=== PATIENT | female | born 2000 ===

== ENCOUNTER 2022-01-28 01:38 | Emergency (ER) | payer OTHER ==
[2022-01-28 01:54] VITALS: BP 114/59; PULSE 80; RESP 16; TEMP 97.9
--- NOTE | 2022-01-28 02:49 | ED ---
General Adult HPI - General Chief complaint: Recheck/Abnormal Lab/Rx Stated complaint: Encounter with a bat Time Seen by Provider: 01/28/22 02:09 Source: patient, RN notes reviewed Mode of arrival: ambulatory Limitations: no limitations - History of Present Illness Initial comments: This is a 21-year-old female who presents to the emergency department for an encounter with bats. States that over the last couple of weeks, she has had encounters with around 3 bats, two of which were in her house and one in her neighbors. She does not believe that she was bitten or scratched at all. States that she did have to clean up quite a lot of bad droppings that were around the house. She inquired about any possible diseases she may have contracted and what to do about this exposure. Denies any fevers, chills, sore throat, cough, dyspnea, chest pain, palpitations, abdominal pain, nausea, vomiting, diarrhea, back pain, or headaches. - Related Data Allergies Allergy/AdvReac Type Severity Reaction Status Date / Time No Known Allergies Allergy Verified 01/28/22 01:51 Review of Systems ROS Statement: Those systems with pertinent positive or pertinent negative responses have been documented in the HPI. ROS Other: All systems not noted in ROS Statement are negative. Past Medical History Past Medical History: No Reported History Past Surgical History: No Surgical Hx Reported Past Psychological History: Anxiety, Depression, PTSD Smoking Status: Never smoker Past Alcohol Use History: None Reported Past Drug Use History: None Reported General Exam Limitations: no limitations General appearance: alert, in no apparent distress Head exam: Present: atraumatic, normocephalic, normal inspection Respiratory exam: Present: normal lung sounds bilaterally. Absent: respiratory distress, wheezes, rales, rhonchi, stridor Cardiovascular Exam: Present: regular rate, normal rhythm, normal heart sounds. Absent: systolic murmur, diastolic murmur, rubs, gallop, clicks Neurological exam: Present: alert, oriented X3, CN II-XII intact Psychiatric exam: Present: normal affect, normal mood Skin exam: Present: warm, dry, intact, normal color. Absent: rash Course Vital Signs 01/28/22 01:52 Temperature 97.9 F Pulse Rate 80 Respiratory 16 Rate Blood Pressure 114/59 O2 Sat by Pulse 98 Oximetry Medical Decision Making - Medical Decision Making This is a 21-year-old female who presents to the emergency department for a bat encounter. Discussed that at this time the rabies vaccination series is something we can offer to mitigate her risk following this exposure. Patient wishes to proceed with rabies vaccination. Patient given the first dose in the emergency department. Advised that she'll need to return on days 3 (01/31), 7 (02/04), and 14 (02/11) for the subsequent doses of the rabies vaccine. Additionally, we discussed that if she begins to develop flulike symptoms, extreme fatigue, or headaches that do not resolve on their own, she should consider returning to the emergency department to discuss testing for histoplasmosis. Return precautions reviewed in depth, the patient is instructed to return to the emergency department with any new, worsening, or concerning symptoms. Patient verbalized understanding. This case was discussed in detail with the attending ED physician. Presentation, findings, and treatment plan discussed in detail as well. Disposition Clinical Impression: Deficient knowledge of rabies contact Disposition: HOME SELF-CARE Instructions (If sedation given, give patient instructions): Rabies Vaccine (By injection), Histoplasmosis (ED), Rabies (ED) Additional Instructions: Return to the emergency department with any new, worsening, or concerning symptoms. You will need repeat rabies vaccines on days 3 (01/31), 7 (02/04), and 14 (02/11). These will be scheduled through [facility]. If you do not hear from the [facility] clinic in 1-2 days, call them to set up the appointments. If your follow up vaccines are on a Tuesday or Tuesday, you will need to return to the emergency department for the vaccine. If you develop any flu-like symptoms, headaches, or extreme fatigue that do not improve on their own or continue to worsen, consider being tested for histoplasmosis. Is patient prescribed a controlled substance at d/c from ED?: No Referrals: None,Stated [Primary Care Provider] - 1-2 days
[2022-01-28] MEDS ORDERED: RABIES VACCINE (PCEC) 2.5 UNIT KIT IM ONE (03:01)
== END 2022-01-28 03:45 | disposition home or self-care (01) ==
LOC: EC 01:38
DX: Z29.14 Encounter for prophylactic rabies immune globulin (principal)
CPT/HCPCS: 90471; 90675; 99281

== ENCOUNTER 2022-02-23 11:29 | Emergency (ER) | payer OTHER ==
--- NOTE | 2022-02-23 13:23 | ED ---
SOB HPI - General Chief Complaint: Shortness of Breath Stated Complaint: chest pain Time Seen by Provider: 02/23/22 13:18 Source: patient Mode of arrival: ambulatory Limitations: no limitations - History of Present Illness Initial Comments: This patient is 21-year-old woman who comes here with concern that she is developing worsening anemia. The patient states she had gone to see her psychiatric counselor today and had been describing some episodes in which she was short of breath. This is been occurring for weeks to months. She states sometimes with exertion or stress she feels short of breath. She is not currently short of breath. She mentioned to the therapist that her hemoglobin previously was 9.0, and the therapist felt that she should have this rechecked. The patient is not having any bloody or tarry stools. She states that she does have small amount of spotting pretty much every day in relation to her control, she does have the Implanon. There is no chest pain. No dyspnea at rest, no palpitations, lightheadedness or syncope. MD Complaint: shortness of breath -: week(s) Consistency: intermittent Improves With: nothing Worsens With: exertion, other Treatments Prior to Arrival: none - Related Data Previous Rx's Medication Instructions Recorded Ferrous Sulfate [Iron (65 MG 325 mg PO BID #60 tab 02/23/22 Elemental)] Allergies Allergy/AdvReac Type Severity Reaction Status Date / Time No Known Allergies Allergy Verified 02/23/22 12:14 Review of Systems ROS Statement: Those systems with pertinent positive or pertinent negative responses have been documented in the HPI. ROS Other: All systems not noted in ROS Statement are negative. Constitutional: Denies: fever, chills Respiratory: Denies: cough, dyspnea Cardiovascular: Reports: dyspnea on exertion. Denies: chest pain, palpitations, orthopnea, edema, syncope Gastrointestinal: Denies: abdominal pain, vomiting, diarrhea Genitourinary: Reports: abnormal menses. Denies: dysuria, frequency, hematuria, discharge Musculoskeletal: Denies: back pain Skin: Denies: rash Neurological: Denies: headache, weakness Past Medical History Past Medical History: No Reported History, Seizure Disorder Additional Past Medical History / Comment(s): ANEMIA History of Any Multi-Drug Resistant Organisms: None Reported Past Surgical History: No Surgical Hx Reported Past Psychological History: Anxiety, Depression, PTSD Smoking Status: Never smoker Past Alcohol Use History: None Reported Past Drug Use History: None Reported General Exam Limitations: no limitations General appearance: alert, in no apparent distress Head exam: Present: atraumatic, normocephalic Eye exam: Present: normal appearance. Absent: scleral icterus, conjunctival injection Pupils: Present: other (No conjunctival pallor) ENT exam: Present: normal oropharynx, other (No mucosal pallor) Neck exam: Present: normal inspection Respiratory exam: Present: normal lung sounds bilaterally. Absent: respiratory distress, wheezes, rales, rhonchi, stridor Cardiovascular Exam: Present: regular rate, normal rhythm, normal heart sounds. Absent: systolic murmur, diastolic murmur, rubs, gallop GI/Abdominal exam: Present: soft. Absent: distended, tenderness, guarding, rebound, rigid, mass Extremities exam: Present: normal inspection, normal capillary refill. Absent: pedal edema, calf tenderness Back exam: Present: normal inspection Neurological exam: Present: alert Skin exam: Present: warm, dry, intact, normal color. Absent: rash, pallor Course Vital Signs 02/23/22 12:12 Pulse Rate 77 Respiratory 20 Rate Blood Pressure 117/77 O2 Sat by Pulse 100 Oximetry Medical Decision Making - Lab Data Result diagrams: 02/23/22 13:05 02/23/22 13:05 Lab Results 02/23/22 02/23/22 Range/Units 13:05 13:05 WBC 5.9 (3.8-10.6) k/uL RBC 4.53 (3.80-5.40) m/uL Hgb 9.1 L (11.4-16.0) gm/dL Hct 30.9 L (34.0-46.0) % MCV 68.1 L D (80.0-100.0) fL MCH 20.1 L (25.0-35.0) pg MCHC 29.6 L (31.0-37.0) g/dL RDW 16.9 H (11.5-15.5) % Plt Count 477 H (150-450) k/uL MPV 8.0 Neutrophils % 56 % Lymphocytes % 34 % Monocytes % 4 % Eosinophils % 3 % Basophils % 1 % Neutrophils # 3.3 (1.3-7.7) k/uL Lymphocytes # 2.0 (1.0-4.8) k/uL Monocytes # 0.2 (0-1.0) k/uL Eosinophils # 0.2 (0-0.7) k/uL Basophils # 0.1 (0-0.2) k/uL Hypochromasia Marked Anisocytosis Slight Microcytosis Marked Sodium 139 (137-145) mmol/L Potassium 3.9 (3.5-5.1) mmol/L Chloride 102 (98-107) mmol/L Carbon Dioxide 24 (22-30) mmol/L Anion Gap 13 mmol/L BUN 11 (7-17) mg/dL Creatinine 0.60 (0.52-1.04) mg/dL Est GFR (CKD-EPI)AfAm >90 (>60 ml/min/1.73 sqM) Est GFR (CKD-EPI)NonAf >90 (>60 ml/min/1.73 sqM) Glucose 81 (74-99) mg/dL Calcium 9.2 (8.4-10.2) mg/dL Total Bilirubin 0.6 (0.2-1.3) mg/dL AST 28 (14-36) U/L ALT 15 (4-34) U/L Alkaline Phosphatase 74 (38-126) U/L Total Protein 7.2 (6.3-8.2) g/dL Albumin 4.7 (3.5-5.0) g/dL - EKG Data -: EKG Interpreted by Ar EKG shows normal: sinus rhythm, axis (Normal), intervals (Normal), QRS complexes (Normal), ST-T waves (Normal) Rate: normal (Rate 77 bpm) Interpretation: normal EKG Disposition Clinical Impression: Anemia Disposition: HOME SELF-CARE Condition: Good Instructions (If sedation given, give patient instructions): Anemia (ED) Prescriptions: Ferrous Sulfate [Iron (65 MG Elemental)] 325 mg PO BID #60 tab Is patient prescribed a controlled substance at d/c from ED?: No Referrals: None,Stated [Primary Care Provider] - 1-2 days Moncho Ferrer MD [STAFF PHYSICIAN] - 1-2 days Time of Disposition: 13:45
[2022-02-23 13:26] LABS: Anisocytosis Slight; Basophils # (A) 0.1 k/uL (0-0.2); Basophils % (A) 1 %; Eosinophils # (A) 0.2 k/uL (0-0.7); Eosinophils % (A) 3 %; HCT 30.9 % (34.0-46.0); HGB 9.1 gm/dL (11.4-16.0); Hypochromasia Marked; Lymphocytes % (A) 34 %; MCH 20.1 pg (25.0-35.0); MCHC 29.6 g/dL (31.0-37.0); Microcytosis Marked; Monocytes # (A) 0.2 k/uL (0-1.0); Monocytes % (A) 4 %; Neutrophils # (A) 3.3 k/uL (1.3-7.7); Neutrophils % (A) 56 %; Platelet Count 477 k/uL (150-450); RBC 4.53 m/uL (3.80-5.40); RDW 16.9 % (11.5-15.5); WBC 5.9 k/uL (3.8-10.6)
--- NOTE | 2022-02-23 13:26 | XR ---
EXAMINATION TYPE: XR chest 2V DATE OF EXAM: 02/23/2022 COMPARISON: None HISTORY: 21-year-old female chest pain, anemia TECHNIQUE: PA and lateral views FINDINGS: Heart normal size. Aorta and pulmonary vasculature within normal limits. Focal hazy lower lung densit ies likely relating to overlying soft tissue. No jess consolidation or pleural effusion seen. IMPRESSION: No definite acute process.
[2022-02-23 13:31] LABS: ALT 15 U/L (4-34); AST 28 U/L (14-36); African American GFR (CKD) >90 (>60 ml/min/1.73 sqM); Albumin 4.7 g/dL (3.5-5.0); Alkaline Phosphatase 74 U/L (38-126); Anion Gap 13 mmol/L; Blood Urea Nitrogen 11 mg/dL (7-17); Calcium 9.2 mg/dL (8.4-10.2); Carbon Dioxide 24 mmol/L (22-30); Chloride 102 mmol/L (98-107); Glucose 81 mg/dL (74-99); Non-African American GFR(CKD) >90 (>60 ml/min/1.73 sqM); Potassium 3.9 mmol/L (3.5-5.1); Sodium 139 mmol/L (137-145); Total Bilirubin 0.6 mg/dL (0.2-1.3); Total Protein 7.2 g/dL (6.3-8.2)
[2022-02-23 13:40] LABS: MCV 68.1 fL (80.0-100.0)
[2022-02-23 15:10] VITALS: BP 118/78; PULSE 88; RESP 18; TEMP 98.3
== END 2022-02-23 14:20 | disposition home or self-care (01) ==
LOC: EC 11:29
DX: D64.9 Anemia, unspecified (principal)
CPT/HCPCS: 36415; 71046; 80053; 85025; 93005; 99285

== ENCOUNTER 2022-09-02 21:32 | Emergency (ER) | payer BC, OTHER ==
[2022-09-02 21:39] VITALS: BP 139/96; PULSE 104; RESP 18; TEMP 98
[2022-09-02] MEDS ORDERED: SODIUM CHLORIDE 0.9% 1,000 ML IV STA (22:01)
[2022-09-02] MEDS ORDERED: ONDANSETRON 4 MG/2 ML VIAL IVP STA (22:01)
--- NOTE | 2022-09-02 22:05 | ED ---
General Adult HPI - General Chief complaint: Nausea/Vomiting/Diarrhea Stated complaint: vomiting Time Seen by Provider: 09/02/22 21:41 Source: patient Mode of arrival: ambulatory Limitations: no limitations - History of Present Illness Initial comments: Dictation was produced using [employer] dictation software. please excuse any grammatical, word or spelling errors. Chief Complaint: 22-year-old female presents with nausea vomiting and periumbilical abdominal pain History of Present Illness: Patient's 22-year-old female she presents to the emergency Department with 1 day of nausea, bilious vomiting and periumbilical pain. She denies any fever or chills. States that her pain is intermittent. She's had multiple bouts of what she describes as vomiting bile acid. Denies any diarrhea. Denies any history of abdominal surgery. No diarrhea. No vaginal discharge or vaginal bleeding. Last measured. Was last week. The ROS documented in this emergency department record has been reviewed and confirmed by me. Those systems with pertinent positive or negative responses have been documented in the HPI. All other systems are other negative and/or noncontributory. PHYSICAL EXAM: General Impression: Alert and oriented x3, not in acute distress HEENT: Normocephalic atraumatic, extra-ocular movements intact, pupils equal and reactive to light bilaterally, mucous membranes moist. Cardiovascular: Heart regular rate and rhythm Chest: Able to complete full sentences, no retractions, no tachypnea Abdomen: abdomen soft, minimal tenderness to the left periumbilical area, no pain at McBurney's point, no rebound tenderness, non-distended, no organomegaly Musculoskeletal: Pulses present and equal in all extremities, no peripheral edema Motor: no focal deficits noted Neurological: CN II-XII grossly intact, no focal motor or sensory deficits noted Skin: Intact with no visualized rashes Psych: Normal affect and mood ED course: 22-year-old female presents to the emergency Department with chief complaint of abdominal pain. Vital signs upon arrival are within acceptable limits. Patient does not have any high-risk features she is well-appearing has a soft abdomen. Her abdominal examination is benign. No concern for acute appendicitis, diverticulitis or any cause of surgical abdomen. Nursing notes and chart review was performed Was pt. sent in by a medical professional or institution (, PA, [employer]IC, urgent care, hospital, or [place] health care facility...) When possible be specific @ -No Did you speak to anyone other than the patient for history (EMS, parent, family, police, friend...)? What history was obtained from this source @ -No Did you review nursing and triage notes (agree or disagree)? Why? @ -I reviewed and agree with nursing and triage notes Were old charts reviewed (outside hosp., previous admission, EMS record, old EKG, old radiological studies, urgent care reports/EKG's, [place] health care facility records)? Report findings @ -No old charts were reviewed Differential Diagnosis (chest pain, altered mental status, abdominal pain women, abdominal pain men, vaginal bleeding, musculoskeletal, weakness, fever, dyspnea, syncope, headache, dizziness, GI bleed, back pain, seizure, CVA, palpatations, mental health)? @ -Differential Abdominal Pain Women: Appendicitis, Cholecystitis, diverticulosis, ischemic bowel, pancreatitis, hepatitis, UTI, gastroenteritis, AAA, incarcerated hernia, bowel obstruction, constipation, inflammatory bowel, hepatitis, peptic ulcer disease, splenic infarction, perforated viscus, vulvitis, ovarian torsion, PID, kidney stone, placenta abruption, this is not meant to be an all-inclusive list EKG interpreted by me (3pts min.). @ -None done X-rays interpreted by me (1pt min.). @ -None done CT interpreted by me (1pt min.). @ -None done U/S interpreted by me (1pt. min.). @ -None done What testing was considered but not performed or refused? (CT, X-rays, U/S, labs)? Why? @ -None What meds were considered but not given or refused? Why? @ -None Did you discuss the management of the patient with other professionals (professionals i.e. , PA, [employer], lab, RT, psych nurse, director social service, zoo keeper, teacher, chief medical officer, nurse case management)? Give summary @ -No Was smoking cessation discussed for >3mins.? @ -No Was critical care preformed (if so, how long)? @ -No Were there social determinants of health that impacted care today? How? (H omelessness, low income, unemployed, alcoholism, drug addiction, transportation, low edu. Level, literacy, decrease access to med. care, group home, rehab)? @ -No Was there de-escalation of care discussed even if they declined (Discuss DNR or withdrawal of care, Hospice)? DNR status @ -No What co-morbidities impacted this encounter? (DM, HTN, Smoking, COPD, CAD, Cancer, CVA, ARF, Chemo, Hep., AIDS, mental health diagnosis, sleep apnea, morbid obesity)? @ -None Was patient admitted / discharged? Hospital course, mention meds given and route, prescriptions, significant lab abnormalities, going to OR and other pertinent info. @ -Old female presents to the emergency room for nausea and mild abdominal pain. Abdomen is soft. Nonsurgical. She does have minimal reproducible abdominal tenderness in the. Umbilical area. Abdomen otherwise benign. No suspicion for surgical abdomen. Laboratory evaluation unremarkable. No leukocytosis. Abdominal labs are negative. Urinalysis is negative. Exacerbation given fluids through the emergency department. Patient discharged with return precautions. She is given prescription for antibiotics. Undiagnosed new problem with uncertain prognosis? @ -No Drug Therapy requiring intensive monitoring for toxicity (Heparin, Nitro, Insulin, Cardizem)? @ -No Were any procedures done? @ -No Diagnosis/symptom? Acute, or Chronic, or Acute on Chronic? Uncomplicated (without systemic symptoms) or Complicated (systemic symptoms)? @ -1. Acute uncomplicated nausea and abdominal pain, likely enteritis Side effects of treatment? @ -No Exacerbation, Progression, or Severe Exacerbation? @ -No Poses a threat to life or bodily function? How? (Chest pain, USA, IA, pneumonia, PE, COPD, DKA, ARF, appy, cholecystitis, CVA, Diverticulitis, Homicidal, Suicidal, threat to staff... and all critical care pts) @ -No - Related Data Home Medications Medication Instructions Recorded Confirmed Ferrous Sulfate [Feosol] 325 mg PO DAILY 09/02/22 09/02/22 Lurasidone [Latuda] 40 mg PO HS 09/02/22 09/02/22 buPROPion XL [Wellbutrin XL] 300 mg PO DAILY 09/02/22 09/02/22 busPIRone HCL 15 mg PO BID 09/02/22 09/02/22 norgestimate-ethinyl estradioL 1 tab PO DAILY 09/02/22 09/02/22 [Nina 0.25-0.035 mg Tablet] Previous Rx's Medication Instructions Recorded Ondansetron Odt [Zofran Odt] 4 mg PO Q8HR PRN #12 tab 09/02/22 Allergies Allergy/AdvReac Type Severity Reaction Status Date / Time No Known Allergies Allergy Verified 09/02/22 22:40 Review of Systems ROS Statement: Those systems with pertinent positive or pertinent negative responses have been documented in the HPI. ROS Other: All systems not noted in ROS Statement are negative. Past Medical History Past Medical History: No Reported History, Seizure Disorder Additional Past Medical History / Comment(s): ANEMIA History of Any Multi-Drug Resistant Organisms: None Reported Past Surgical History: No Surgical Hx Reported Past Psychological History: Anxiety, Depression, PTSD Smoking Status: Never smoker Past Alcohol Use History: None Reported Past Drug Use History: None Reported General Exam Limitations: no limitations Course Vital Signs 09/02/22 21:35 Temperature 98 F Pulse Rate 104 H Respiratory 18 Rate Blood Pressure 139/96 O2 Sat by Pulse 98 Oximetry Medical Decision Making - Lab Data Result diagrams: 09/02/22 22:12 09/02/22 22:12 Lab Results 09/02/22 09/02/22 09/02/22 Range/Units 22:12 22:12 22:51 WBC 9.5 (3.8-10.6) k/uL RBC 4.86 (3.80-5.40) m/uL Hgb 15.6 (11.4-16.0) gm/dL Hct 43.3 (34.0-46.0) % MCV 89.1 (80.0-100.0) fL MCH 32.1 (25.0-35.0) pg MCHC 36.1 (31.0-37.0) g/dL RDW 12.4 (11.5-15.5) % Plt Count 349 (150-450) k/uL MPV 6.7 Neutrophils % 70 % Lymphocytes % 23 % Monocytes % 5 % Eosinophils % 1 % Basophils % 1 % Neutrophils # 6.6 (1.3-7.7) k/uL Lymphocytes # 2.2 (1.0-4.8) k/uL Monocytes # 0.5 (0-1.0) k/uL Eosinophils # 0.1 (0-0.7) k/uL Basophils # 0.1 (0-0.2) k/uL Sodium 136 L (137-145) mmol/L Potassium 4.1 (3.5-5.1) mmol/L Chloride 102 (98-107) mmol/L Carbon Dioxide 25 (22-30) mmol/L Anion Gap 9 mmol/L BUN 8 (7-17) mg/dL Creatinine 0.63 (0.52-1.04) mg/dL Est GFR (CKD-EPI)AfAm >90 (>60 ml/min/1.73 sqM) Est GFR (CKD-EPI)NonAf >90 (>60 ml/min/1.73 sqM) Glucose 94 (74-99) mg/dL Calcium 9.2 (8.4-10.2) mg/dL Total Bilirubin 1.2 (0.2-1.3) mg/dL AST 35 (14-36) U/L ALT 37 H (4-34) U/L Alkaline Phosphatase 63 (38-126) U/L Total Protein 7.6 (6.3-8.2) g/dL Albumin 4.7 (3.5-5.0) g/dL Lipase 79 (23-300) U/L Urine Color Yellow Urine Appearance Clear (Clear) Urine pH 8.0 (5.0-8.0) Ur Specific Anthony 1.013 (1.001-1.035) Urine Protein Negative (Negative) Urine Glucose (UA) Negative (Negative) Urine Ketones 1+ H (Negative) Urine Blood Negative (Negative) Urine Nitrite Negative (Negative) Urine Bilirubin Negative (Negative) Urine Urobilinogen <2.0 (<2.0) mg/dL Ur Leukocyte Esterase Negative (Negative) Urine HCG, Qual (Not Detectd) 09/02/22 Range/Units 22:53 WBC (3.8-10.6) k/uL RBC (3.80-5.40) m/uL Hgb (11.4-16.0) gm/dL Hct (34.0-46.0) % MCV (80.0-100.0) fL MCH (25.0-35.0) pg MCHC (31.0-37.0) g/dL RDW (11.5-15.5) % Plt Count (150-450) k/uL MPV Neutrophils % % Lymphocytes % % Monocytes % % Eosinophils % % Basophils % % Neutrophils # (1.3-7.7) k/uL Lymphocytes # (1.0-4.8) k/uL Monocytes # (0-1.0) k/uL Eosinophils # (0-0.7) k/uL Basophils # (0-0.2) k/uL Sodium (137-145) mmol/L Potassium (3.5-5.1) mmol/L Chloride (98-107) mmol/L Carbon Dioxide (22-30) mmol/L Anion Gap mmol/L BUN (7-17) mg/dL Creatinine (0.52-1.04) mg/dL Est GFR (CKD-EPI)AfAm (>60 ml/min/1.73 sqM) Est GFR (CKD-EPI)NonAf (>60 ml/min/1.73 sqM) Glucose (74-99) mg/dL Calcium (8.4-10.2) mg/dL Total Bilirubin (0.2-1.3) mg/dL AST (14-36) U/L ALT (4-34) U/L Alkaline Phosphatase (38-126) U/L Total Protein (6.3-8.2) g/dL Albumin (3.5-5.0) g/dL Lipase (23-300) U/L Urine Color Urine Appearance (Clear) Urine pH (5.0-8.0) Ur Specific Anthony (1.001-1.035) Urine Protein (Negative) Urine Glucose (UA) (Negative) Urine Ketones (Negative) Urine Blood (Negative) Urine Nitrite (Negative) Urine Bilirubin (Negative) Urine Urobilinogen (<2.0) mg/dL Ur Leukocyte Esterase (Negative) Urine HCG, Qual Not Detected (Not Detectd) Disposition Clinical Impression: Nausea Disposition: HOME SELF-CARE Condition: Good Instructions (If sedation given, give patient instructions): Acute Nausea and Vomiting (ED) Prescriptions: Ondansetron Odt [Zofran Odt] 4 mg PO Q8HR PRN #12 tab PRN Reason: Nausea Is patient prescribed a controlled substance at d/c from ED?: No Referrals: José Antonio Allan DO [Primary Care Provider] - 1-2 days Time of Disposition: 23:47
[2022-09-02 22:27] LABS: Basophils # (A) 0.1 k/uL (0-0.2); Basophils % (A) 1 %; Eosinophils # (A) 0.1 k/uL (0-0.7); Eosinophils % (A) 1 %; HCT 43.3 % (34.0-46.0); HGB 15.6 gm/dL (11.4-16.0); Lymphocytes # (A) 2.2 k/uL (1.0-4.8); Lymphocytes % (A) 23 %; MCH 32.1 pg (25.0-35.0); MCHC 36.1 g/dL (31.0-37.0); MCV 89.1 fL (80.0-100.0); Mean Platelet Volume 6.7; Monocytes # (A) 0.5 k/uL (0-1.0); Monocytes % (A) 5 %; Neutrophils # (A) 6.6 k/uL (1.3-7.7); Neutrophils % (A) 70 %; Platelet Count 349 k/uL (150-450); RBC 4.86 m/uL (3.80-5.40); RDW 12.4 % (11.5-15.5); WBC 9.5 k/uL (3.8-10.6)
[2022-09-02 22:31] LABS: ALT 37 U/L (4-34); AST 35 U/L (14-36); African American GFR (CKD) >90 (>60 ml/min/1.73 sqM); Albumin 4.7 g/dL (3.5-5.0); Alkaline Phosphatase 63 U/L (38-126); Anion Gap 9 mmol/L; Blood Urea Nitrogen 8 mg/dL (7-17); Calcium 9.2 mg/dL (8.4-10.2); Carbon Dioxide 25 mmol/L (22-30); Chloride 102 mmol/L (98-107); Glucose 94 mg/dL (74-99); Lipase 79 U/L (23-300); Non-African American GFR(CKD) >90 (>60 ml/min/1.73 sqM); Potassium 4.1 mmol/L (3.5-5.1); Sodium 136 mmol/L (137-145); Total Bilirubin 1.2 mg/dL (0.2-1.3); Total Protein 7.6 g/dL (6.3-8.2)
[2022-09-02 23:04] LABS: Appearance,Urine Clear (Clear); Bilirubin,Urine Negative (Negative); Blood,Urine Negative (Negative); Color,Urine Yellow; Glucose,Urine (UA) Negative (Negative); Ketones,Urine 1+ (Negative); Leukocyte Esterase,Urine Negative (Negative); Nitrite,Urine Negative (Negative); Protein,Urine Negative (Negative); Specific Gravity,Urine 1.013 (1.001-1.035); Urobilinogen,Urine <2.0 mg/dL (<2.0)
[2022-09-02] MEDS ORDERED: ONDANSETRON 4 MG ODT STARTER PACK 2 TAB BTL PO STA (23:45)
== END 2022-09-03 00:20 | disposition home or self-care (01) ==
LOC: EC 21:32
DX: R11.2 Nausea with vomiting, unspecified (principal); F41.9 Anxiety disorder, unspecified; F32.A Depression, unspecified
CPT/HCPCS: 36415; 80053; 83690; 85025; 81003; 81025; 99284; 96374; 96361 ×2; J2405

== ENCOUNTER 2022-09-09 14:20 | Emergency (ER) | payer BC ==
--- NOTE | 2022-09-09 15:39 | ED ---
Nausea/Vomiting/Diarrhea HPI - General Source: patient, RN notes reviewed Mode of arrival: ambulatory Limitations: no limitations - History of Present Illness MD complaint: nausea, vomiting <Salina Bhatia - Last Filed: 09/09/22 15:37> <Arvind Wong - Last Filed: 09/09/22 20:19> - General Chief complaint: Nausea/Vomiting/Diarrhea Stated complaint: vomiting Time Seen by Provider: 09/09/22 15:30 - History of Present Illness Initial comments: This is a 22-year-old female who presents emergency department for nausea and vomiting. Denies any associated abdominal pain. Denies any blood in her vomit or changes in bowel/bladder habits. (Salina Bhatia) Patient is a 22-year-old female presenting with chief complaint of nausea and vomiting. Patient was seen here on 09/02 for the same complaints, was given nausea medication and instructed to follow-up with PCP. Patient states that her physician did not have an opening in the near future and she ran out of nausea medication. She was having recurrence of this nausea and vomiting. No abdomin al pain. No fevers or chills. No hematemesis. No diarrhea, hematochezia, melena. No chest pain or difficulty breathing. She does admit to URI-like symptoms. (Arvind Wong) - Related Data Home Medications Medication Instructions Recorded Confirmed Ferrous Sulfate [Feosol] 325 mg PO DAILY 09/02/22 09/02/22 Lurasidone [Latuda] 40 mg PO HS 09/02/22 09/02/22 buPROPion XL [Wellbutrin XL] 300 mg PO DAILY 09/02/22 09/02/22 busPIRone HCL 15 mg PO BID 09/02/22 09/02/22 norgestimate-ethinyl estradioL 1 tab PO DAILY 09/02/22 09/02/22 [Nina 0.25-0.035 mg Tablet] Previous Rx's Medication Instructions Recorded Ondansetron Odt [Zofran Odt] 4 mg PO Q8HR PRN #12 tab 09/02/22 Ondansetron Odt [Zofran Odt] 4 mg PO Q8HR PRN #30 tab 09/09/22 Allergies Allergy/AdvReac Type Severity Reaction Status Date / Time No Known Allergies Allergy Verified 09/02/22 22:40 Review of Systems ROS Other: All systems not noted in ROS Statement are negative. <Salina Bhatia - Last Filed: 09/09/22 15:37> ROS Other: All systems not noted in ROS Statement are negative. <Arvind Wong - Last Filed: 09/09/22 20:19> ROS Statement: Those systems with pertinent positive or pertinent negative responses have been documented in the HPI. Past Medical History Past Medical History: No Reported History, Seizure Disorder Additional Past Medical History / Comment(s): ANEMIA History of Any Multi-Drug Resistant Organisms: None Reported Past Surgical History: No Surgical Hx Reported Past Psychological History: Anxiety, Depression, PTSD Smoking Status: Never smoker Past Alcohol Use History: None Reported Past Drug Use History: None Reported <Salina Bhatia - Last Filed: 09/09/22 15:37> General Exam Limitations: no limitations <Salina Bhatia - Last Filed: 09/09/22 15:37> Limitations: no limitations General appearance: alert, in no apparent distress Head exam: Present: atraumatic, normocephalic, normal inspection Eye exam: Present: normal appearance Neck exam: Present: normal inspection, full ROM Respiratory exam: Present: normal lung sounds bilaterally. Absent: respiratory distress, wheezes, rales, rhonchi, stridor Cardiovascular Exam: Present: regular rate, normal rhythm, normal heart sounds. Absent: systolic murmur, diastolic murmur, rubs, gallop, clicks GI/Abdominal exam: Present: soft. Absent: distended, tenderness, guarding, rebound, rigid Neurological exam: Present: alert, oriented X3, CN II-XII intact Psychiatric exam: Present: normal affect, normal mood Skin exam: Present: warm, dry, intact, normal color. Absent: rash <Arvind Wong - Last Filed: 09/09/22 20:19> - General Exam Comments Initial Comments: Visual Physical Exam Vital signs reviewed General: Well-appearing, nontoxic, no acute distress. Head: Normocephalic, atraumatic Eyes: PERRLA, EOMI ENT: Airway patent Chest: Nonlabored breathing Skin: No visual rash, normal skin tone Neuro: Alert and oriented 3 Musculoskeletal: No gross abnormalities (Salina Bhatia) Course Vital Signs 09/09/22 09/09/22 09/09/22 14:27 19:00 20:09 Temperature 99.4 F 98.7 F 98.6 F Pulse Rate 93 69 70 Respiratory 20 16 16 Rate Blood Pressure 113/74 122/72 123/78 O2 Sat by Pulse 98 98 98 Oximetry Medical Decision Making - Lab Data Result diagrams: 09/09/22 16:37 09/09/22 16:37 <Arvind Wong - Last Filed: 09/09/22 20:19> - Medical Decision Making Was pt. sent in by a medical professional or institution (, ABEL, OPEN DIE INSPECTOR, urgent care, hospital, or jail...) When possible be specific @ -No Did you speak to anyone other than the patient for history (EMS, parent, family, police, friend...)? What history was obtained from this source @ -No Did you review nursing and triage notes (agree or disagree)? Why? @ -I reviewed and agree with nursing and triage notes Were old charts reviewed (outside hosp., previous admission, EMS record, old EKG, old radiological studies, urgent care reports/EKG's, jail records)? Report findings @ -No old charts were reviewed Differential Diagnosis (chest pain, altered mental status, abdominal pain women, abdominal pain men, vaginal bleeding, weakness, fever, dyspnea, syncope, headache, dizziness, GI bleed, back pain, seizure, CVA, palpatations, mental health, musculoskeletal)? @ -Differential includes gastroenteritis, medication induced vomiting, anxiety, appendicitis, cholelithiasis/cholecystitis, pancreatitis, this is not an all inclusive list EKG interpreted by me (3pts min.). @ -As above X-rays interpreted by me (1pt min.). @ -None done CT interpreted by me (1pt min.). @ -None done U/S interpreted by me (1pt. min.). @ -None done What testing was considered but not performed or refused? (CT, X-rays, U/S, la bs)? Why? @ -None What meds were considered but not given or refused? Why? @ -None Did you discuss the management of the patient with other professionals (professionals i.e. , PA, OPEN DIE INSPECTOR, lab, RT, psych nurse, social services designee, military lawyer, teacher, interface control officer, medical case manager)? Give summary @ -No Was smoking cessation discussed for >3mins.? @ -No Was critical care preformed (if so, how long)? @ -No Were there social determinants of health that impacted care today? How? (Homelessness, low income, unemployed, alcoholism, drug addiction, transportation, low edu. Level, literacy, decrease access to med. care, alf, rehab)? @ -No Was there de-escalation of care discussed even if they declined (Discuss DNR or withdrawal of care, Hospice)? DNR status @ -No What co-morbidities impacted this encounter? (DM, HTN, Smoking, COPD, CAD, Cancer, CVA, ARF, Chemo, Hep., AIDS, mental health diagnosis, sleep apnea, morbid obesity)? @ -None Was patient admitted / discharged? Hospital course, mention meds given and route, prescriptions, significant lab abnormalities, going to OR and other pertinent info. @ -Patient is a 22-year-old female presenting with chief complaint of nausea and vomiting. No abdominal pain. Evaluated here recently for same complaint, states that symptoms are alleviated with Zofran which she recently ran out. Physical examination is benign. Lab work including urine and hCG are negative. Patient is resting comfortably, she received IV fluids and Zofran. Patient is educated on today's findings and the need for follow-up with her PCP. Sent home with prescription for Zofran. Follow-up with PCP. Report back to ER with any new or worsening symptoms. Discussed return parameters and answered all questions. Patient conveyed verbal understanding and agreed to the plan. I discussed this case in detail with my attending Dr. Galvez Undiagnosed new problem with uncertain prognosis? @ -No Drug Therapy requiring intensive monitoring for toxicity (Heparin, Nitro, Insulin, Cardizem)? @ -No Were any procedures done? @ -No Diagnosis/symptom? @ -Nausea and vomiting Acute, or Chronic, or Acute on Chronic? @ -Acute Uncomplicated (without systemic symptoms) or Complicated (systemic symptoms)? @ -Uncomplicated Side effects of treatment? @ -No Exacerbation, Progression, or Severe Exacerbation? @ -No Poses a threat to life or bodily function? How? (Chest pain, [place], [place], pneumonia, PE, COPD, DKA, ARF, appy, cholecystitis, CVA, Diverticulitis, Homicidal, Suicidal, threat to staff... and all critical care pts) @ -No (Arvind Wong) - Lab Data Lab Results 09/09/22 09/09/22 09/09/22 Range/Units 16:37 16:37 18:49 WBC 9.4 (3.8-10.6) k/uL RBC 4.91 (3.80-5.40) m/uL Hgb 15.3 (11.4-16.0) gm/dL Hct 44.5 (34.0-46.0) % MCV 90.7 (80.0-100.0) fL MCH 31.2 (25.0-35.0) pg MCHC 34.4 (31.0-37.0) g/dL RDW 12.1 (11.5-15.5) % Plt Count 296 (150-450) k/uL MPV 6.8 Neutrophils % 76 % Lymphocytes % 15 % Monocytes % 5 % Eosinophils % 2 % Basophils % 1 % Neutrophils # 7.1 (1.3-7.7) k/uL Lymphocytes # 1.5 (1.0-4.8) k/uL Monocytes # 0.5 (0-1.0) k/uL Eosinophils # 0.2 (0-0.7) k/uL Basophils # 0.1 (0-0.2) k/uL Sodium 139 (137-145) mmol/L Potassium 4.3 (3.5-5.1) mmol/L Chloride 102 (98-107) mmol/L Carbon Dioxide 28 (22-30) mmol/L Anion Gap 9 mmol/L BUN 6 L (7-17) mg/dL Creatinine 0.65 (0.52-1.04) mg/dL Est GFR (CKD-EPI)AfAm >90 (>60 ml/min/1.73 sqM) Est GFR (CKD-EPI)NonAf >90 (>60 ml/min/1.73 sqM) Glucose 78 (74-99) mg/dL Calcium 8.8 (8.4-10.2) mg/dL Total Bilirubin 0.8 (0.2-1.3) mg/dL AST 28 (14-36) U/L ALT 34 (4-34) U/L Alkaline Phosphatase 53 (38-126) U/L Total Protein 7.4 (6.3-8.2) g/dL Albumin 4.6 (3.5-5.0) g/dL Amylase 106 (30-110) U/L Lipase 94 (23-300) U/L Urine Color Yellow Urine Appearance Clear (Clear) Urine pH 8.0 (5.0-8.0) Ur Specific [place] 1.013 (1.001-1.035) Urine Protein Negative (Negative) Urine Glucose (UA) Negative (Negative) Urine Ketones Negative (Negative) Urine Blood Negative (Negative) Urine Nitrite Negative (Negative) Urine Bilirubin Negative (Negative) Urine Urobilinogen <2.0 (<2.0) mg/dL Ur Leukocyte Esterase Negative (Negative) Urine HCG, Qual (Not Detectd) 09/09/22 Range/Units 18:49 WBC (3.8-10.6) k/uL RBC (3.80-5.40) m/uL Hgb (11.4-16.0) gm/dL Hct (34.0-46.0) % MCV (80.0-100.0) fL MCH (25.0-35.0) pg MCHC (31.0-37.0) g/dL RDW (11.5-15.5) % Plt Count (150-450) k/uL MPV Neutrophils % % Lymphocytes % % Monocytes % % Eosinophils % % Basophils % % Neutrophils # (1.3-7.7) k/uL Lymphocytes # (1.0-4.8) k/uL Monocytes # (0-1.0) k/uL Eosinophils # (0-0.7) k/uL Basophils # (0-0.2) k/uL Sodium (137-145) mmol/L Potassium (3.5-5.1) mmol/L Chloride (98-107) mmol/L Carbon Dioxide (22-30) mmol/L Anion Gap mmol/L BUN (7-17) mg/dL Creatinine (0.52-1.04) mg/dL Est GFR (CKD-EPI)AfAm (>60 ml/min/1.73 sqM) Est GFR (CKD-EPI)NonAf (>60 ml/min/1.73 sqM) Glucose (74-99) mg/dL Calcium (8.4-10.2) mg/dL Total Bilirubin (0.2-1.3) mg/dL AST (14-36) U/L ALT (4-34) U/L Alkaline Phosphatase (38-126) U/L Total Protein (6.3-8.2) g/dL Albumin (3.5-5.0) g/dL Amylase (30-110) U/L Lipase (23-300) U/L Urine Color Urine Appearance (Clear) Urine pH (5.0-8.0) Ur Specific [place] (1.001-1.035) Urine Protein (Negative) Urine Glucose (UA) (Negative) Urine Ketones (Negative) Urine Blood (Negative) Urine Nitrite (Negative) Urine Bilirubin (Negative) Urine Urobilinogen (<2.0) mg/dL Ur Leukocyte Esterase (Negative) Urine HCG, Qual Not Detected (Not Detectd) Disposition <Salina Bhatia - Last Filed: 09/09/22 15:37> Is patient prescribed a controlled substance at d/c from ED?: No Time of Disposition: 19:27 <Arvind Wong - Last Filed: 09/09/22 20:19> Clinical Impression: Nausea & vomiting Disposition: HOME SELF-CARE Condition: Good Instructions (If sedation given, give patient instructions): Acute Nausea and Vomiting (ED) Additional Instructions: Follow-up with PCP. Report back to ER with any new or worsening symptoms. Take medication as prescribed. Prescriptions: Ondansetron Odt [Zofran Odt] 4 mg PO Q8HR PRN #30 tab PRN Reason: Nausea Referrals: Meghan Sanon MD [Primary Care Provider] - 1-2 days
[2022-09-09] MEDS ORDERED: ONDANSETRON 4 MG/2 ML VIAL IVP STA (16:37)
[2022-09-09] MEDS ORDERED: SODIUM CHLORIDE 0.9% 1,000 ML IV STA (16:37)
[2022-09-09 17:50] LABS: Basophils # (A) 0.1 k/uL (0-0.2); Basophils % (A) 1 %; Eosinophils # (A) 0.2 k/uL (0-0.7); Eosinophils % (A) 2 %; HCT 44.5 % (34.0-46.0); HGB 15.3 gm/dL (11.4-16.0); Lymphocytes # (A) 1.5 k/uL (1.0-4.8); Lymphocytes % (A) 15 %; MCH 31.2 pg (25.0-35.0); MCHC 34.4 g/dL (31.0-37.0); MCV 90.7 fL (80.0-100.0); Mean Platelet Volume 6.8; Monocytes # (A) 0.5 k/uL (0-1.0); Monocytes % (A) 5 %; Neutrophils # (A) 7.1 k/uL (1.3-7.7); Neutrophils % (A) 76 %; Platelet Count 296 k/uL (150-450); RBC 4.91 m/uL (3.80-5.40); RDW 12.1 % (11.5-15.5); WBC 9.4 k/uL (3.8-10.6)
[2022-09-09 18:16] LABS: ALT 34 U/L (4-34); AST 28 U/L (14-36); African American GFR (CKD) >90 (>60 ml/min/1.73 sqM); Albumin 4.6 g/dL (3.5-5.0); Alkaline Phosphatase 53 U/L (38-126); Amylase 106 U/L (30-110); Anion Gap 9 mmol/L; Blood Urea Nitrogen 6 mg/dL (7-17); Calcium 8.8 mg/dL (8.4-10.2); Carbon Dioxide 28 mmol/L (22-30); Chloride 102 mmol/L (98-107); Glucose 78 mg/dL (74-99); Lipase 94 U/L (23-300); Non-African American GFR(CKD) >90 (>60 ml/min/1.73 sqM); Potassium 4.3 mmol/L (3.5-5.1); Sodium 139 mmol/L (137-145); Total Bilirubin 0.8 mg/dL (0.2-1.3); Total Protein 7.4 g/dL (6.3-8.2)
[2022-09-09 19:14] VITALS: RESP 16
[2022-09-09 19:16] LABS: Appearance,Urine Clear (Clear); Bilirubin,Urine Negative (Negative); Blood,Urine Negative (Negative); Color,Urine Yellow; Glucose,Urine (UA) Negative (Negative); Ketones,Urine Negative (Negative); Leukocyte Esterase,Urine Negative (Negative); Nitrite,Urine Negative (Negative); Protein,Urine Negative (Negative); Specific Gravity,Urine 1.013 (1.001-1.035); Urobilinogen,Urine <2.0 mg/dL (<2.0)
[2022-09-09 20:10] VITALS: BP 123/78; PULSE 70; TEMP 98.6
== END 2022-09-09 20:10 | disposition home or self-care (01) ==
LOC: EC 14:20
DX: R11.2 Nausea with vomiting, unspecified (principal); F41.9 Anxiety disorder, unspecified; F32.A Depression, unspecified
CPT/HCPCS: 99284; 96374; 96361; 36415; 80053; 82150; 83690; 85025; 81003; 81025; J2405

== ENCOUNTER 2023-08-04 02:11 | Emergency (ER) | payer OTHER ==
[2023-08-04 02:33] VITALS: RESP 18; TEMP 98.3
[2023-08-04] MEDS: PANTOPRAZOLE 40 MG/10 ML VIAL IVP STA (02:48)
[2023-08-04] MEDS: ONDANSETRON 4 MG/2 ML VIAL IVP STA (02:48)
[2023-08-04] MEDS: SODIUM CHLORIDE 0.9% 1,000 ML IV STA (02:48)
--- NOTE | 2023-08-04 02:50 | ED ---
General Adult HPI - General Chief complaint: Nausea/Vomiting/Diarrhea Stated complaint: vomiting Time Seen by Provider: 08/04/23 02:29 Source: patient, family, RN notes reviewed, old records reviewed Mode of arrival: ambulatory Limitations: no limitations - History of Present Illness Initial comments: Patient is a 23-year-old female who presents emergency department with chronic nausea and vomiting. Denies any abdominal pain. Has been getting outpatient workup including EGD and is due for follow-up soon however patient over the last day or so has had issues with tolerating even oral intake of liquids. Presents for further evaluation at this time. Does not have ODT Zofran anymore which she is to take daily. States she ran out of her prescription on Tuesday. Denies any other acute complaints. Denies any known fevers. Denies any diarrhea, constipation. Presents for further evaluation at this time. Denies fevers, chills, cough, rhinorrhea. - Related Data Home Medications Medication Instructions Recorded Confirmed Ferrous Sulfate [Feosol] 325 mg PO DAILY 09/02/22 09/02/22 Lurasidone [Latuda] 40 mg PO HS 09/02/22 09/02/22 buPROPion XL [Wellbutrin XL] 300 mg PO DAILY 09/02/22 09/02/22 busPIRone HCL 15 mg PO BID 09/02/22 09/02/22 norgestimate-ethinyl estradioL 1 tab PO DAILY 09/02/22 09/02/22 [Nina 0.25-0.035 mg Tablet] Previous Rx's Medication Instructions Recorded Ondansetron Odt [Zofran Odt] 4 mg PO Q8HR PRN #12 tab 09/02/22 Ondansetron Odt [Zofran Odt] 4 mg PO Q8HR PRN #30 tab 09/09/22 Allergies Allergy/AdvReac Type Severity Reaction Status Date / Time No Known Allergies Allergy Verified 08/04/23 02:16 Review of Systems ROS Statement: Those systems with pertinent positive or pertinent negative responses have been documented in the HPI. Review of Systems: CONST: Denies fever EYES: Denies blurry vision ENT: Denies nasal congestion C/V: Denies Chest pain RESP: Denies shortness of breath GI: Denies abdominal pain : Denies dysuria SKIN: Denies rash. MSK: Denies joint pain. NEURO: Denies headache ROS Other: All systems not noted in ROS Statement are negative. Past Medical History Past Medical History: No Reported History, Seizure Disorder Additional Past Medical History / Comment(s): ANEMIA History of Any Multi-Drug Resistant Organisms: None Reported Past Surgical History: No Surgical Hx Reported Past Psychological History: Anxiety, Depression, PTSD Smoking Status: Never smoker Past Alcohol Use History: None Reported Past Drug Use History: None Reported General Exam - General Exam Comments Initial Comments: General: Appears in no acute distress. HEAD: Normal with no signs of head trauma. EYES: PERRLA, EOMI, conjunctiva normal, no discharge. ENT: Hearing grossly intact, normal oropharynx. Moist mucous membranes. RESPIRATORY: Clear breath sounds bilaterally. No wheezes, rales, or rhonchi. C/V: Regular rate and rhythm. S1 and S2 auscultated, no edema, peripheral pulses 2+ and intact throughout ABD: Abd is soft, nontender, nondistended EXT: Normal range of motion, no obvious deformity SKIN: No rashes or lesions observed on exposed skin. NEURO: Alert and oriented x 4. Limitations: no limitations Course Vital Signs 08/04/23 08/04/23 02:13 03:01 Temperature 98.3 F Pulse Rate 100 88 Respiratory 18 18 Rate Blood Pressure 120/83 124/89 O2 Sat by Pulse 98 100 Oximetry Medical Decision Making - Medical Decision Making Was pt. sent in by a medical professional or institution (Dr. PA, NARROW GAUGE ENGINEER, urgent care, hospital, or jail...) When possible be specific @ -No Did you speak to anyone other than the patient for history (EMS, parent, family, police, friend...)? What history was obtained from this source @ -No Did you review nursing and triage notes (agree or disagree)? Why? @ -I reviewed and agree with nursing and triage notes Were old charts reviewed (outside hosp., previous admission, EMS record, old EKG, old radiological studies, urgent care reports/EKG's, jail records)? Report findings @ -Old charts reviewed Differential Diagnosis (chest pain, altered mental status, abdominal pain women, abdominal pain men, vaginal bleeding, weakness, fever, dyspnea, syncope, headache, dizziness, GI bleed, back pain, seizure, CVA, palpatations, mental health, musculoskeletal)? @ -Chronic intractable nausea and vomiting, peptic ulcer disease, dehydration, electrolyte abnormality. This list is not all inclusive. EKG interpreted by me (3pts min.). @ -As above X-rays interpreted by me (1pt min.). @ -None done CT interpreted by me (1pt min.). @ -None done U/S interpreted by me (1pt. min.). @ -None done What testing was considered but not performed or refused? (CT, X-rays, U/S, labs)? Why? @ -Considered imaging however patient has no acute complaints in terms of pain at this time. Is resting comfortably. Only complaint is her chronic nausea whi ch has been ongoing for 1 year. She agrees to defer at this time. What meds were considered but not given or refused? Why? @ -None Did you discuss the management of the patient with other professionals (professionals i.e. , PA, NARROW GAUGE ENGINEER, lab, RT, psych nurse, social worker clinical, vp care management, teacher, airfield engineer officer, case management manager)? Give summary @ -No Was smoking cessation discussed for >3mins.? @ -No Was critical care preformed (if so, how long)? @ -No Were there social determinants of health that impacted care today? How? (Homelessness, low income, unemployed, alcoholism, drug addiction, transportatio n, low edu. Level, literacy, decrease access to med. care, residential, rehab)? @ -No Was there de-escalation of care discussed even if they declined (Discuss DNR or withdrawal of care, Hospice)? DNR status @ -No What co-morbidities impacted this encounter? (DM, HTN, Smoking, COPD, CAD, Cancer, CVA, ARF, Chemo, Hep., AIDS, mental health diagnosis, sleep apnea, morbid obesity)? @ -Chronic intractable nausea and vomiting Was patient admitted / discharged? Hospital course, mention meds given and route, prescriptions, significant lab abnormalities, going to OR and other pertinent info. @ -Based on the patient's presentation and physical exam, presents with chronic intractable nausea and vomiting. We will obtain abdominal laboratory studies, and symptomatically treat the patient with IV fluids, Zofran, Protonix. She was in agreement this plan. No abdominal pain. Vital signs are within acceptable limits. EKG shows no signs of acute ischemia.Laboratory studies are all within acceptable limits other than minimally elevated AST and ALT as well as a minimally elevated amylase. Negative test. Urine has 1+ ketones which fits with her nausea and vomiting. On reevaluation, she is tolerating oral intake. I discussed results with patient. She expressed understanding. She will be discharged home at this time with ODT Zofran. Recommended taking at most 1/day if she is taking it on a daily basis. She was in agreement this plan. She will follow-up with her GI physician. I will provide the patient with a prescription for starter pack of ODT Zofran. I instructed the patient to follow up with their PCP in the next 1-3 days. I explained that the patient should return to the emergency department if they experience any worsening symptoms. Strict return precautions were discussed with the patient. The patient expressed understanding of these instructions. I answered all questions that the patient had. The patient was discharged home in good condition with their prescriptions and follow up information. Undiagnosed new problem with uncertain prognosis? @ -No Drug Therapy requiring intensive monitoring for toxicity (Heparin, Nitro, Insulin, Cardizem)? @ -No Were any procedures done? @ -No Diagnosis/symptom? @ -Nausea and vomiting Acute, or Chronic, or Acute on Chronic? @ -Acute on chronic Uncomplicated (without systemic symptoms) or Complicated (systemic symptoms)? @ -Uncomplicated Side effects of treatment? @ -None Exacerbation, Progression, or Severe Exacerbation] @ -No Poses a threat to life or bodily function? @ -No - Lab Data Result diagrams: 08/04/23 03:00 08/04/23 03:00 Lab Results 08/04/23 08/04/23 08/04/23 Range/Units 03:00 03:00 03:43 WBC 9.5 (3.8-10.6) k/uL RBC 4.71 (3.80-5.40) m/uL Hgb 14.2 (11.4-16.0) gm/dL Hct 41.8 (34.0-46.0) % MCV 88.8 (80.0-100.0) fL MCH 30.2 (25.0-35.0) pg MCHC 34.0 (31.0-37.0) g/dL RDW 12.1 (11.5-15.5) % Plt Count 316 (150-450) k/uL MPV 6.9 Neutrophils % 71 % Lymphocytes % 20 % Monocytes % 5 % Eosinophils % 2 % Basophils % 1 % Neutrophils # 6.7 (1.3-7.7) k/uL Lymphocytes # 1.9 (1.0-4.8) k/uL Monocytes # 0.4 (0-1.0) k/uL Eosinophils # 0.2 (0-0.7) k/uL Basophils # 0.1 (0-0.2) k/uL Sodium 135 L (137-145) mmol/L Potassium 3.9 (3.5-5.1) mmol/L Chloride 104 (98-107) mmol/L Carbon Dioxide 25 (22-30) mmol/L Anion Gap 6 mmol/L BUN 10 (7-17) mg/dL Creatinine 0.66 (0.52-1.04) mg/dL Est GFR (CKD-EPI)AfAm >90 (>60 ml/min/1.73 sqM) Est GFR (CKD-EPI)NonAf >90 (>60 ml/min/1.73 sqM) Glucose 81 (74-99) mg/dL Calcium 9.1 (8.4-10.2) mg/dL Total Bilirubin 1.1 (0.2-1.3) mg/dL AST 55 H (14-36) U/L ALT 50 H (4-34) U/L Alkaline Phosphatase 68 (38-126) U/L Total Protein 7.3 (6.3-8.2) g/dL Albumin 4.5 (3.5-5.0) g/dL Amylase 111 H (30-110) U/L Lipase 108 (23-300) U/L HCG, Qual Not Detected Urine Color Colorless Urine Appearance Clear (Clear) Urine pH 7.0 (5.0-8.0) Ur Specific [place] 1.011 (1.001-1.035) Urine Protein Negative (Negative) Urine Glucose (UA) Negative (Negative) Urine Ketones 1+ H (Negative) Urine Blood Negative (Negative) Urine Nitrite Negative (Negative) Urine Bilirubin Negative (Negative) Urine Urobilinogen <2.0 (<2.0) mg/dL Ur Leukocyte Esterase Trace H (Negative) Urine RBC 1 (0-5) /hpf Urine WBC 1 (0-5) /hpf Ur Squamous Epith Cells <1 (0-4) /hpf Urine Bacteria Rare H (None) /hpf Urine Mucus Rare H (None) /hpf - EKG Data -: EKG Interpreted by Me EKG Comments: 12-lead Electrocardiogram Interpretation Note EKG was reviewed and interpreted by myself. 12-lead ECG performed at 0241 is interpreted by me as revealing normal sinus rhythm at a rate of 75 beats per minute. [place] is normal. MI interval is 158 ms, QRS duration is 87 ms, QTc is 404 ms.. There were no ST or T wave abnormalities to suggest myocardial ischemia or injury. R wave progression across the precordium was satisfactory. By my interpretation this EKG is non-diagnostic for acute ischemia. Disposition Clinical Impression: Nausea and vomiting Disposition: HOME SELF-CARE Condition: Good Instructions (If sedation given, give patient instructions): Acute Nausea and Vomiting (ED) Is patient prescribed a controlled substance at d/c from ED?: No Referrals: Meghan Sanon MD [Primary Care Provider] - 1-2 days Time of Disposition: 04:31
[2023-08-04 03:07] LABS: Basophils # (A) 0.1 k/uL (0-0.2); Basophils % (A) 1 %; Eosinophils # (A) 0.2 k/uL (0-0.7); Eosinophils % (A) 2 %; HCT 41.8 % (34.0-46.0); HGB 14.2 gm/dL (11.4-16.0); Lymphocytes # (A) 1.9 k/uL (1.0-4.8); Lymphocytes % (A) 20 %; MCH 30.2 pg (25.0-35.0); MCV 88.8 fL (80.0-100.0); Mean Platelet Volume 6.9; Monocytes # (A) 0.4 k/uL (0-1.0); Monocytes % (A) 5 %; Neutrophils # (A) 6.7 k/uL (1.3-7.7); Neutrophils % (A) 71 %; Platelet Count 316 k/uL (150-450); RBC 4.71 m/uL (3.80-5.40); RDW 12.1 % (11.5-15.5); WBC 9.5 k/uL (3.8-10.6)
[2023-08-04 03:48] LABS: HCG,Qualitative Serum Not Detected
[2023-08-04 03:51] LABS: Appearance,Urine Clear (Clear); Bacteria,Urine Rare /hpf; Bilirubin,Urine Negative (Negative); Blood,Urine Negative (Negative); Color,Urine Colorless; Glucose,Urine (UA) Negative (Negative); Ketones,Urine 1+ (Negative); Leukocyte Esterase,Urine Trace (Negative); Mucus,Urine Rare /hpf; Nitrite,Urine Negative (Negative); Protein,Urine Negative (Negative); RBC,Urine 1 /hpf (0-5); Specific Gravity,Urine 1.011 (1.001-1.035); Squamous Epithelial Cell,Urine <1 /hpf (0-4); Urobilinogen,Urine <2.0 mg/dL (<2.0); WBC,Urine 1 /hpf (0-5)
[2023-08-04 04:16] LABS: ALT 50 U/L (4-34); AST 55 U/L (14-36); African American GFR (CKD) >90 (>60 ml/min/1.73 sqM); Albumin 4.5 g/dL (3.5-5.0); Alkaline Phosphatase 68 U/L (38-126); Amylase 111 U/L (30-110); Anion Gap 6 mmol/L; Blood Urea Nitrogen 10 mg/dL (7-17); Calcium 9.1 mg/dL (8.4-10.2); Carbon Dioxide 25 mmol/L (22-30); Chloride 104 mmol/L (98-107); Glucose 81 mg/dL (74-99); Lipase 108 U/L (23-300); Non-African American GFR(CKD) >90 (>60 ml/min/1.73 sqM); Potassium 3.9 mmol/L (3.5-5.1); Sodium 135 mmol/L (137-145); Total Bilirubin 1.1 mg/dL (0.2-1.3); Total Protein 7.3 g/dL (6.3-8.2)
[2023-08-04] MEDS: ONDANSETRON 4 MG ODT STARTER PACK 2 TAB BTL PO STA (04:38)
[2023-08-04 05:09] VITALS: BP 128/70; PULSE 86
== END 2023-08-04 04:54 | disposition home or self-care (01) ==
LOC: EC 02:11
DX: R11.2 Nausea with vomiting, unspecified (principal); F32.A Depression, unspecified; F41.9 Anxiety disorder, unspecified; Z79.899 Other long term (current) drug therapy
CPT/HCPCS: 36415; 93005; 80053; 82150; 83690; 85025; 81001; 84703; 99284; 96374; 96375; 96361 ×2; J2405; S0119; C9113

== ENCOUNTER 2024-04-16 20:25 | Observation (INO) | payer OTHER ==
--- NOTE | 2024-04-16 22:06 | XR ---
EXAMINATION TYPE: XR chest 2V DATE OF EXAM: 04/16/2024 9:45 PM COMPARISON: Chest radiograph 02/23/2022. CLINICAL INDICATION: Female, 24 years old with history of Chest Pain; [facility] TECHNIQUE: XR chest 2V Frontal and lateral views of the chest. FINDINGS: Cardiac silhouette within normal limits for size. No acute focal consolidation. No pleural effusion. No pneumothorax. No acute osseous abnormality. IMPRESSION: No acute cardiopulmonary disease/process. [facility], , 04/16/2024 10:04 PM
[2024-04-16 22:32] LABS: Basophils # (A) 0.1 k/uL (0-0.2); Basophils % (A) 1 %; Eosinophils # (A) 0.3 k/uL (0-0.7); Eosinophils % (A) 4 %; HCT 45.6 % (34.0-46.0); HGB 15.7 gm/dL (11.4-16.0); Lymphocytes # (A) 2.6 k/uL (1.0-4.8); Lymphocytes % (A) 33 %; MCH 30.5 pg (25.0-35.0); MCHC 34.4 g/dL (31.0-37.0); MCV 88.7 fL (80.0-100.0); Mean Platelet Volume 6.7; Monocytes # (A) 0.4 k/uL (0-1.0); Monocytes % (A) 5 %; Neutrophils # (A) 4.3 k/uL (1.3-7.7); Neutrophils % (A) 55 %; Platelet Count 410 k/uL (150-450); RBC 5.14 m/uL (3.80-5.40); RDW 12.1 % (11.5-15.5); WBC 7.8 k/uL (3.8-10.6)
[2024-04-16 22:45] LABS: African American GFR (CKD) >90 (>60 ml/min/1.73 sqM); Anion Gap 10 mmol/L; Blood Urea Nitrogen 8 mg/dL (7-17); Calcium 9.6 mg/dL (8.4-10.2); Carbon Dioxide 22 mmol/L (22-30); Chloride 106 mmol/L (98-107); Glucose 83 mg/dL (74-99); Magnesium 2.1 mg/dL (1.6-2.3); Non-African American GFR(CKD) >90 (>60 ml/min/1.73 sqM); Sodium 138 mmol/L (137-145)
[2024-04-16 22:48] LABS: ALT 31 U/L (4-34); AST 60 U/L (14-36); Albumin 5.4 g/dL (3.5-5.0); Alkaline Phosphatase 42 U/L (38-126); Potassium 5.4 mmol/L (3.5-5.1); Total Protein 8.9 g/dL (6.3-8.2)
--- NOTE | 2024-04-16 23:08 | ED ---
General Adult HPI - General Chief complaint: Chest Pain Stated complaint: Chest Pressure,Sob Time Seen by Provider: 04/16/24 22:03 Source: patient Mode of arrival: ambulatory Limitations: no limitations - History of Present Illness Initial comments: Dictation was produced using [employer] dictation software. please excuse any grammatical, word or spelling errors. Chief Complaint: 24-year-old female chest pain History of Present Illness: Patient is a 24-year-old female presents with chest pain. States that substernal. States that it sharp sometimes dull. No associate diaphoresis or nausea. She has had symptoms like this in the past. Denies any cardiac history. No family history of cardiac disease. Denies any associated shortness of breath. No history of PE. Symptoms are nonradiating. Denies any chest trauma. The ROS documented in this emergency department record has been reviewed and confirmed by me. Those systems with pertinent positive or negative responses have been documented in the HPI. All other systems are other negative and/or noncontributory. - Related Data Home Medications Medication Instructions Recorded Confirmed Ferrous Sulfate [Feosol] 325 mg PO DAILY 09/02/22 09/02/22 Lurasidone [Latuda] 40 mg PO HS 09/02/22 09/02/22 buPROPion XL [Wellbutrin XL] 300 mg PO DAILY 09/02/22 09/02/22 busPIRone HCL 15 mg PO BID 09/02/22 09/02/22 norgestimate-ethinyl estradioL 1 tab PO DAILY 09/02/22 09/02/22 [Nina 0.25-0.035 mg Tablet] Previous Rx's Medication Instructions Recorded Ondansetron Odt [Zofran Odt] 4 mg PO Q8HR PRN #12 tab 09/02/22 Ondansetron Odt [Zofran Odt] 4 mg PO Q8HR PRN #30 tab 09/09/22 Allergies Allergy/AdvReac Type Severity Reaction Status Date / Time No Known Allergies Allergy Verified 04/16/24 20:31 Review of Systems ROS Statement: Those systems with pertinent positive or pertinent negative responses have been documented in the HPI. ROS Other: All systems not noted in ROS Statement are negative. Past Medical History Past Medical History: No Reported History, Seizure Disorder Additional Past Medical History / Comment(s): ANEMIA History of Any Multi-Drug Resistant Organisms: None Reported Past Surgical History: No Surgical Hx Reported Past Psychological History: Anxiety, Depression, PTSD Smoking Status: Never smoker Past Alcohol Use History: None Reported Past Drug Use History: None Reported General Exam - General Exam Comments Initial Comments: PHYSICAL EXAM: General Impression: Alert and oriented x3, not in acute distress HEENT: Normocephalic atraumatic, extra-ocular movements intact, pupils equal and reactive to light bilaterally, mucous membranes moist. Cardiovascular: Heart regular rate and rhythm Chest: Able to complete full sentences, no retractions, no tachypnea Abdomen: abdomen soft, non-tender, non-distended, no organomegaly Musculoskeletal: Pulses present and equal in all extremities, no peripheral edema Motor: no focal deficits noted Neurological: CN II-XII grossly intact, no focal motor or sensory deficits noted Skin: Intact with no visualized rashes Psych: Normal affect and mood Limitations: no limitations Course Vital Signs 04/16/24 04/16/24 20:29 22:18 Temperature 98.2 F Pulse Rate 85 70 Respiratory 16 16 Rate Blood Pressure 106/73 119/79 O2 Sat by Pulse 99 100 Oximetry EKG Findings - EKG Comments: EKG Findings:: My EKG interpretation: Ventricular rate 73, sinus rhythm,. 134, QRS 89, QTc 415. No OR prolongation, no QTC prolongation, no ST or T-wave changes noted. Overall, this EKG is unremarkable Medical Decision Making - Medical Decision Making Was pt. sent in by a medical professional or institution (, [facility], QUALITATIVE EXECUTIVE RESEARCHER, urgent care, hospital, or long-term...) When possible be specific @ -No Did you speak to anyone other than the patient for history (EMS, parent, family, police, friend...)? What history was obtained from this source @ -No Did you review nursing and triage notes (agree or disagree)? Why? @ -I reviewed and agree with nursing and triage notes Were old charts reviewed (outside hosp., previous admission, EMS record, old EKG, old radiological studies, urgent care reports/EKG's, long-term records)? Report findings @ -No old charts were reviewed Differential Diagnosis (chest pain, altered mental status, abdominal pain women, abdominal pain men, vaginal bleeding, musculoskeletal, weakness, fever, dyspnea, syncope, headache, dizziness, GI bleed, back pain, seizure, CVA, palpatations, mental health)? @ -Differential Chest Pain: Stable Angina, Unstable Angina, STEMI, NSTEMI Aortic Dissection, Pneumothorax, Musculoskeletal, Esophageal Spasm GERD, Cholecystitis, Pancreatitis, Zoster, this is not meant to be an all-inclusive list. EKG interpreted by me (3pts min.). @ -See above X-rays interpreted by me (1pt min.). @ -Chest x-ray is nonacute CT interpreted by me (1pt min.). @ -None done U/S interpreted by me (1pt. min.). @ -None done What testing was considered but not performed or refused? (CT, X-rays, U/S, labs)? Why? @ -None What meds were considered but not given or refused? Why? @ -None Was smoking cessation discussed for >3mins.? @ -No Were there social determinants of health that impacted care today? How? (Homelessness, low income, unemployed, alcoholism, drug addiction, transport ation, low edu. Level, literacy, decrease access to med. care, usp, rehab)? @ -No Was there de-escalation of care discussed even if they declined (Discuss DNR or withdrawal of care, Hospice)? DNR status @ -No What co-morbidities impacted this encounter? (DM, HTN, Smoking, COPD, CAD, Cancer, CVA, ARF, Chemo, Hep., AIDS, mental health diagnosis, sleep apnea, morbid obesity)? @ -None Was patient admitted / discharged? Hospital course, mention meds given and route, prescriptions, significant lab abnormalities, going to OR and other pertinent info. @ -24-year-old female presents to the emergency department atypical chest pain with typical features. Vital signs upon arrival are within acceptable limits. Patient well-appearing at the bedside. She has no significant risk factors. Laboratory evaluation obtained. Labs mostly unremarkable except for slightly elevated troponin 0.022. Patient given aspirin will be admitted consultation cardiology. Did you discuss the management of the patient with other professionals (professionals i.e. , PA, QUALITATIVE EXECUTIVE RESEARCHER, lab, RT, psych nurse, child protective services social worker, automobiles salesperson, teacher, plain clothes police officer, catalytic case operator)? Give summary @ -Case discussed with hospitalist for admission Was critical care preformed (if so, how long)? @ -No Undiagnosed new problem with uncertain prognosis? @ -No Drug Therapy requiring intensive monitoring for toxicity (Heparin, Nitro, Ins ulin, Cardizem)? @ -No Were any procedures done? @ -No Diagnosis/symptom? Acute, or Chronic, or Acute on Chronic? Uncomplicated (without systemic symptoms) or Complicated (systemic symptoms)? @ -Chest pain Side effects of treatment? @ -No Exacerbation, Progression, or Severe Exacerbation? @ -No Poses a threat to life or bodily function? How? (Chest pain, USA, IA, pneumonia, PE, COPD, DKA, ARF, appy, cholecystitis, CVA, Diverticulitis, Homicidal, Suicidal, threat to staff... and all critical care pts) @ -No - Lab Data Result diagrams: 04/16/24 22:06 04/16/24 22:06 Lab Results 04/16/24 04/16/24 04/16/24 Range/Units 22:06 22:06 22:06 WBC 7.8 (3.8-10.6) k/uL RBC 5.14 (3.80-5.40) m/uL Hgb 15.7 (11.4-16.0) gm/dL Hct 45.6 (34.0-46.0) % MCV 88.7 (80.0-100.0) fL MCH 30.5 (25.0-35.0) pg MCHC 34.4 (31.0-37.0) g/dL RDW 12.1 (11.5-15.5) % Plt Count 410 (150-450) k/uL MPV 6.7 Neutrophils % 55 % Lymphocytes % 33 % Monocytes % 5 % Eosinophils % 4 % Basophils % 1 % Neutrophils # 4.3 (1.3-7.7) k/uL Lymphocytes # 2.6 (1.0-4.8) k/uL Monocytes # 0.4 (0-1.0) k/uL Eosinophils # 0.3 (0-0.7) k/uL Basophils # 0.1 (0-0.2) k/uL PT 11.0 (10.0-12.5) sec INR 1.0 (<1.2) APTT 28.0 (22.0-30.0) sec D-Dimer <0.17 (<0.60) mg/L FEU Sodium 138 (137-145) mmol/L Potassium 5.4 H (3.5-5.1) mmol/L Chloride 106 (98-107) mmol/L Carbon Dioxide 22 (22-30) mmol/L Anion Gap 10 mmol/L BUN 8 (7-17) mg/dL Creatinine 0.57 (0.52-1.04) mg/dL Est GFR (CKD-EPI)AfAm >90 (>60 ml/min/1.73 sqM) Est GFR (CKD-EPI)NonAf >90 (>60 ml/min/1.73 sqM) Glucose 83 (74-99) mg/dL Calcium 9.6 (8.4-10.2) mg/dL Magnesium 2.1 (1.6-2.3) mg/dL Total Bilirubin 2.0 H (0.2-1.3) mg/dL AST 60 H (14-36) U/L ALT 31 (4-34) U/L Alkaline Phosphatase 42 (38-126) U/L Troponin I (0.000-0.034) ng/mL Total Protein 8.9 H (6.3-8.2) g/dL Albumin 5.4 H (3.5-5.0) g/dL 04/16/24 Range/Units 22:06 WBC (3.8-10.6) k/uL RBC (3.80-5.40) m/uL Hgb (11.4-16.0) gm/dL Hct (34.0-46.0) % MCV (80.0-100.0) fL MCH (25.0-35.0) pg MCHC (31.0-37.0) g/dL RDW (11.5-15.5) % Plt Count (150-450) k/uL MPV Neutrophils % % Lymphocytes % % Monocytes % % Eosinophils % % Basophils % % Neutrophils # (1.3-7.7) k/uL Lymphocytes # (1.0-4.8) k/uL Monocytes # (0-1.0) k/uL Eosinophils # (0-0.7) k/uL Basophils # (0-0.2) k/uL PT (10.0-12.5) sec INR (<1.2) APTT (22.0-30.0) sec D-Dimer (<0.60) mg/L FEU Sodium (137-145) mmol/L Potassium (3.5-5.1) mmol/L Chloride (98-107) mmol/L Carbon Dioxide (22-30) mmol/L Anion Gap mmol/L BUN (7-17) mg/dL Creatinine (0.52-1.04) mg/dL Est GFR (CKD-EPI)AfAm (>60 ml/min/1.73 sqM) Est GFR (CKD-EPI)NonAf (>60 ml/min/1.73 sqM) Glucose (74-99) mg/dL Calcium (8.4-10.2) mg/dL Magnesium (1.6-2.3) mg/dL Total Bilirubin (0.2-1.3) mg/dL AST (14-36) U/L ALT (4-34) U/L Alkaline Phosphatase (38-126) U/L Troponin I 0.022 (0.000-0.034) ng/mL Total Protein (6.3-8.2) g/dL Albumin (3.5-5.0) g/dL Disposition Clinical Impression: Chest pain Disposition: ADMITTED IP TO THIS HOSP Condition: Fair Referrals: Meghan Sanon MD [Primary Care Provider] - 1-2 days Decision Time: 00:37
[2024-04-17] MEDS ORDERED: NITROGLYCERIN SL TABS 0.4 MG TAB SUBLINGUAL PRN (00:34)
[2024-04-17] MEDS: ASPIRIN 81 MG PO STA (01:13)
--- NOTE | 2024-04-17 11:41 | P.CRDCN ---
History of Present Illness History of present illness: HISTORY OF PRESENT ILLNESS: This is a 24-year-old female with a past medical history significant for anxiety, depression, and PTSD. Patient does not follow with a spool hauler. We have been asked to see the patient in consultation for chest pain. Patient examined at the bedside in the emergency room. Patient presented to the emergency room with a chief complaint of chest discomfort. Patient states she has been having chest pain since . She states it feels like a pressure type sensation. She states it is in the middle of her chest. She denies any radiation of the pain. Denies any shortness of breath. Denies any dizziness or lightheadedness. Denies any nausea or vomiting. She states the pain is not different if she is laying down or sitting. She states with deep inspiration she does have slightly more chest pressure. She states she has been taking Advil at home without relief. She denies any fever or chills. Denies a cough. Denies any recent infection or being around any sick contacts. She is a non- smoker. She denies any alcohol use. She denies any drug use including marijuana. DIAGNOSTICS: - EKG reveals sinus mechanism with no signs of acute ischemia - Chest xray negative for acute process - Laboratory data: WBC 7.8. Hemoglobin 15.7. Platelet count 410. D-dimer 0.17. Sodium 138. Potassium 5.4. BUN 8. Creatinine 0.57. Troponin negative x 3. - Current home cardiac medications include none - No previous cardiac catheterization, stress test, or echocardiogram available in EMR for review REVIEW OF SYSTEMS: At the time of my exam: CONSTITUTIONAL: Denies fever or chills. HEENT: Denies blurred vision, vision changes, or eye pain. Denies hemoptysis CARDIOVASCULAR: Denies chest pain. Denies orthopnea. Denies PND. Denies palpitations RESPIRATORY: Denies shortness of breath. GASTROINTESTINAL: Denies abdominal pain. Denies nausea or vomiting. HEMATOLOGIC: Denies bleeding disorders. GENITOURINARY: Denies any blood in urine. SKIN: Denies pruitis. Denies rash. PHYSICAL EXAM: VITAL SIGNS: Reviewed. GENERAL: Well-developed in no acute distress. HEENT: Head is normocephalic. Pupils are equal, round. Sclerae anicteric. Mucous membranes of the mouth are moist. Neck supple. No JVD or thyromegaly LUNGS: Respirations even and unlabored. Lungs essentially clear to auscultation bilaterally. HEART: Regular rate and rhythm. S1 and S2 heard. ABDOMEN: Soft. Nondistended. Nontender. EXTREMITIES: Normal range of motion. No clubbing or cyanosis. Peripheral pulses intact. No lower extremity edema NEUROLOGIC: Awake and alert. Oriented x 3. ASSESSMENT: Atypical chest pain, troponin negative x 3 Anxiety Depression History of PTSD PLAN: An acute coronary event has been ruled out Obtain 2D echo to assess cardiac structure and function Check ESR and CRP If 2D echo does not reveal any significant abnormalities, patient may be discharged today from a cardiac standpoint and follow-up with her primary care physician Nurse practitioner note has been reviewed by physician. Signing provider agrees with the documented findings, assessment, and plan of care documented by WINDOWS MOBILE DEVELOPER as a scribe. Past Medical History Past Medical History: No Reported History, Seizure Disorder Additional Past Medical History / Comment(s): ANEMIA History of Any Multi-Drug Resistant Organisms: None Reported Past Surgical History: No Surgical Hx Reported Past Psychological History: Anxiety, Depression, PTSD Smoking Status: Never smoker Past Alcohol Use History: None Reported Past Drug Use History: None Reported Medications and Allergies Home Medications Medication Instructions Recorded Confirmed Type Ferrous Sulfate [Feosol] 325 mg PO DAILY 09/02/22 04/17/24 History Lurasidone [Latuda] 40 mg PO HS 09/02/22 04/17/24 History buPROPion XL [Wellbutrin XL] 300 mg PO DAILY 09/02/22 04/17/24 History norgestimate-ethinyl estradioL 1 tab PO DAILY 09/02/22 04/17/24 History [Nina 0.25-0.035 mg Tablet] hydrOXYzine pamoate [Vistaril] 50 mg PO BID PRN 04/17/24 04/17/24 History Allergies Allergy/AdvReac Type Severity Reaction Status Date / Time No Known Allergies Allergy Verified 04/17/24 07:47 Physical Exam Vitals: Vital Signs Temp Pulse Resp BP Pulse Ox 04/17/24 08:04 71 18 112/68 99 04/17/24 06:07 98.6 F 64 15 120/77 99 04/17/24 04:06 68 15 109/65 96 04/17/24 01:19 97.6 F 77 15 124/77 99 04/16/24 22:18 70 16 119/79 100 04/16/24 20:29 98.2 F 85 16 106/73 99 Intake and Output 04/16/24 04/17/24 04/17/24 22:59 06:59 14:59 Other: Weight 46.72 kg Results 04/16/24 22:06 04/16/24 22:06 Cardiac Enzymes 04/16/24 04/16/24 04/17/24 Range/Units 22:06 22:06 00:46 AST 60 H (14-36) U/L Troponin I 0.022 <0.012 (0.000-0.034) ng/mL 04/17/24 Range/Units 04:00 AST (14-36) U/L Troponin I <0.012 (0.000-0.034) ng/mL Coagulation 04/16/24 Range/Units 22:06 PT 11.0 (10.0-12.5) sec APTT 28.0 (22.0-30.0) sec CBC 04/16/24 Range/Units 22:06 WBC 7.8 (3.8-10.6) k/uL RBC 5.14 (3.80-5.40) m/uL Hgb 15.7 (11.4-16.0) gm/dL Hct 45.6 (34.0-46.0) % Plt Count 410 (150-450) k/uL Comprehensive Metabolic Panel 04/16/24 Range/Units 22:06 Sodium 138 (137-145) mmol/L Potassium 5.4 H (3.5-5.1) mmol/L Chloride 106 (98-107) mmol/L Carbon Dioxide 22 (22-30) mmol/L BUN 8 (7-17) mg/dL Creatinine 0.57 (0.52-1.04) mg/dL Glucose 83 (74-99) mg/dL Calcium 9.6 (8.4-10.2) mg/dL AST 60 H (14-36) U/L ALT 31 (4-34) U/L Alkaline Phosphatase 42 (38-126) U/L Total Protein 8.9 H (6.3-8.2) g/dL Albumin 5.4 H (3.5-5.0) g/dL Current Medications Generic Name Dose Route Start Last Admin Trade Name Freq PRN Reason Stop Dose Admin Aspirin 325 mg 04/18/24 09:00 Aspirin 325 Mg Tab PO DAILY OPAL Nitroglycerin 0.4 mg 04/17/24 00:34 Nitroglycerin Sl Tabs 0.4 Mg Tab SUBLINGUAL Q5M PRN Chest Pain Intake and Output 04/16/24 04/17/24 04/17/24 22:59 06:59 14:59 Other: Weight 46.72 kg 04/16/24 22:06 04/16/24 22:06
[2024-04-17] MEDS ORDERED: hydrOXYzine pamoate 25 MG CAP PO PRN (15:30)
--- NOTE | 2024-04-17 15:51 | P.HPIM ---
History of Present Illness H&P Date: 04/17/24 Chief Complaint: Chest pain Patient is a 24 year old female with PMH of anxiety and anemia presented to the ED with chest pain. She mentions her symptoms started 4-5 days ago. The pressure sensation on her chest started at rest and it comes and goes. She sometime gets sharp substernal pain that is 8/10 severity. Denies radiation of the pain. Denies any changes in her physical activity or exertion. Denies having any alleviating or precipitating factors. It is associated with shortness of breath and palpitations. She tried her anxiety meds as well as pain killers but that did not help with her symptoms. She reports having similar symptoms a few months ago. At the time the pain resolved on its own. She has been a frequenter to the ER in the past few years mostly for nausea and vomiting. Additionally, she states taking a Motrin every day and being on control currently. Denies fever, chills, abdominal pain, nausea, vomiting, diaphoresis, cough, hematuria, dysuria, hematochezia, melena. ED documentation reviewed. In the ED patient was treated with Aspirin 325 mg. Vitals on admission T 98.2 F, [place] 85 bpm, RR 16, BP 106/73, O2 sats 99% on room air EKG independently interpreted as sinus rhythm, rate 63 bpm, QTc 415 ms CXR shows no acute cardiopulmonary disease or process Labs on admission show WBC 7.8, hemoglobin 15.7, INR 1, D-dimer less than 0.17, potassium 5.4, total bilirubin 2, AST 60, CRP 0.5, total protein 8.9, albumin 5.4 Troponin I 0.022, <0.012 x 2 Review of systems: Pertinent positives and negatives as discussed in HPI, a complete review of systems was performed and all other systems are negative. PMH: Anxiety/Depression, Anemia Allergies: NKDA Social history: Tobacco: Never smoker Alcohol: Denies use Recreational drugs: Denies use Travel: No recent travel history Sick contacts: None Physical examination: Vital signs reviewed General: nontoxic, no distress, appears at stated age Derm: warm, dry, intact Head: atraumatic, normocephalic, symmetric Eyes: EOMI, anicteric sclera Mouth: no lip lesion, mucus membranes moist Cardiovascular: S1 S2 reg, no murmur Lungs: CTA bilateral, no rhonchi, no rales, no accessory muscle use Abdominal: soft, non-tender to palpation Extremities: No cyanosis, clubbing, or pedal edema. Neuro: Alert, Oriented, Gross neurological examination did not reveal any focal deficits. Psych: well appearing, appropriate affect Assessment/Plan: Patient is a 24 year old female with no significant past medical history presented to the ED yesterday with chest pain. She has been admitted for further workup of the chest pain. Active: #. Atypical chest pain, r/o ACS Troponin I 0.022, <0.012 x 2 EKG independently interpreted as sinus rhythm, rate 63 bpm, QTc 415 ms CRP <0.5 Continue Nitroglycerin 0.4 mg SL Q5M PRN ESR and Pro BNP ordered Obtain 2D echo per cardiology Continue telemetry monitoring Cardiology is following #. Hyperbilirubinemia #. Epigastric pain Total bilirubin 2, AST 60 Obtain ultrasound of the liver Started on Pantoprazole 40 mg PO Daily Advised to decrease Motrin use Chronic: #. Anxiety/Depression Continue Lurasidone 40 mg PO HS, Hydroxyzine 50 mg PO BID PRN and Bupropion 300 mg PO Daily F:None E:Replete as required N:Heart healthy diet A:Ambulatory DVT prophylaxis: SCD GI prophylaxis: Pantoprazole 40 mg PO Daily The patient is admitted with an anticipated less than 2 midnight stay for evaluation of epigastric pain CODE STATUS: Full Code Discussed with: Patient Anticipated discharge place: Home Attestation I have seen and examined this patient with my resident , discussed the same with the resident/J CARLOS, and agree with the dictator's assessment and plan as written Dr. Blake gan Past Medical History Past Medical History: No Reported History, Seizure Disorder Additional Past Medical History / Comment(s): ANEMIA History of Any Multi-Drug Resistant Organisms: None Reported Past Surgical History: No Surgical Hx Reported Past Psychological History: Anxiety, Depression, PTSD Smoking Status: Never smoker Past Alcohol Use History: None Reported Past Drug Use History: None Reported Medications and Allergies Home Medications Medication Instructions Recorded Confirmed Type Ferrous Sulfate [Iron (65 MG 325 mg PO DAILY 09/02/22 04/17/24 History Elemental)] Lurasidone [Latuda] 40 mg PO HS 09/02/22 04/17/24 History buPROPion XL [Wellbutrin XL] 300 mg PO DAILY 09/02/22 04/17/24 History norgestimate-ethinyl estradioL 1 tab PO DAILY 09/02/22 04/17/24 History [Nina 0.25-0.035 mg Tablet] hydrOXYzine pamoate [Vistaril] 50 mg PO BID PRN 04/17/24 04/17/24 History Allergies Allergy/AdvReac Type Severity Reaction Status Date / Time No Known Allergies Allergy Verified 04/17/24 07:47 Physical Exam Vitals: Vital Signs Temp Pulse Resp BP Pulse Ox 04/17/24 12:36 67 18 119/68 98 04/17/24 11:24 78 18 119/68 97 04/17/24 08:04 71 18 112/68 99 04/17/24 06:07 98.6 F 64 15 120/77 99 04/17/24 04:06 68 15 109/65 96 04/17/24 01:19 97.6 F 77 15 124/77 99 04/16/24 22:18 70 16 119/79 100 04/16/24 20:29 98.2 F 85 16 106/73 99 Results CBC & Chem 7: 04/18/24 04:02 04/18/24 04:02 Labs: Abnormal Lab Results - Last 24 Hours (Table) 04/16/24 Range/Units 22:06 Potassium 5.4 H (3.5-5.1) mmol/L Total Bilirubin 2.0 H (0.2-1.3) mg/dL AST 60 H (14-36) U/L Total Protein 8.9 H (6.3-8.2) g/dL Albumin 5.4 H (3.5-5.0) g/dL
--- NOTE | 2024-04-17 16:39 | US ---
EXAMINATION TYPE: US abdomen limited DATE OF EXAM: 04/17/2024 COMPARISON: NONE CLINICAL INDICATION: Female, 24 years old with history of Abdominal pain, elevated LFTs; abn labs, ch est pain TECHNIQUE: Grayscale and color Doppler imaging of the right upper quadrant was performed. FINDINGS: EXAM MEASUREMENTS: Liver Length: 14.7 cm Gallbladder Wall: 0.2 cm CBD: 0.3 cm Right Kidney: 9.1 x 4.0 x 3.1 cm Pancreas: wnl Liver: wnl Gallbladder: wnl Evidence for sonographic Hargrove's sign: no CBD: wnl Right Kidney: wnl IMPRESSION: No evidence for acute process. [facility], , 04/17/2024 4:36 PM
[2024-04-17] MEDS: LURASIDONE 40 MG TAB PO SCH (21:13)
[2024-04-18] MEDS: PANTOPRAZOLE 40 MG TABLET PO SCH (06:58)
[2024-04-18 07:48] VITALS: BP 105/69; PULSE 78; RESP 16; TEMP 97.8
[2024-04-18] MEDS: buPROPion XL 300 MG TAB.ER.24H PO SCH (07:56)
[2024-04-18 08:51] LABS: HCT 41.7 % (37.2-46.3); HGB 14.4 g/dL (12.0-15.0); MCH 29.5 pg (27.0-32.0); MCHC 34.5 g/dL (32.0-37.0); MCV 85.5 FL (80.0-97.0); Mean Platelet Volume 8.8 FL (9.5-12.2); NRBC Per 100 WBC 0 X 10*3/uL (0.00-0.01); Platelet Count 401 X 10*3/uL (140-440); RBC 4.88 X 10*6/uL (4.10-5.20); RDW 12.2 % (11.5-14.5); WBC 7.33 X 10*3/uL (4.50-10.00)
[2024-04-18 08:58] LABS: BUN/Creat Ratio 12.75 Ratio (12.00-20.00); Blood Urea Nitrogen 10.2 mg/dL (9.0-27.0); Calcium 9.3 mg/dL (8.7-10.3); Carbon Dioxide 26.3 mmol/L (21.6-31.8); Chloride 104 mmol/L (96-109); Chol/HDL Ratio 2.47 Ratio; Glucose 78 mg/dL (70-110); LDL Cholesterol,Calculated 88.3 mg/dL (0.0-131.0); Potassium 4.7 mmol/L (3.5-5.5); Sodium 140 mmol/L (135-145)
[2024-04-18] MEDS ORDERED: ASPIRIN 325 MG TAB PO SCH (09:00)
--- NOTE | 2024-04-18 09:44 | CA ---
Transthoracic Echo Report Name: Rosanna Alvarez Age: 24 Gender: F : 2000 Exam Date: 04/17/2024 10:38 Exam Location: [facility] Ht (in): 58 Wt (lb): 103 Ordering Physician: Deepti Sosa Attending/Referring Phys: [id number], Ian [employer] Riveter Catalina Pereira RDCS Procedure CPT: Indications: LV function, CP Cardiac Hx: Technical Quality: Good Contrast 1: Total Dose (mL): Contrast 2: Total Dose (mL): MEASUREMENTS (Male / Female) Normal Values 2D ECHO LV Diastolic Diameter PLAX 4.3 cm 4.2 - 5.9 / 3.9 - 5.3 cm LV Systolic Diameter PLAX 2.7 cm IVS Diastolic Thickness 0.5 cm 0.6 - 1.0 / 0.6 - 0.9 cm LVPW Diastolic Thickness 0.6 cm 0.6 - 1.0 / 0.6 - 0.9 cm LV Relative Wall Thickness 0.3 LVOT Diameter 1.7 cm LV Diastolic Volume MOD BP 84.0 cm??? 67 - 155 / 56 - 104 cm??? LV Systolic Volume MOD BP 32.3 cm??? 22 - 58 / 19 - 49 cm??? LV Ejection Fraction MOD BP 61.6 % >= 55 % LV Cardiac Index MOD BP 2573.4 cm???/min???m??? LV Diastolic Volume MOD 4C 79.8 cm??? LV Systolic Volume MOD 4C 29.9 cm??? LV Ejection Fraction MOD 4C 62.5 % LV Cardiac Index MOD 4C 2477.1 cm???/min???m??? LV Diastolic Length 4C 7.6 cm LV Systolic Length 4C 6.1 cm LV Diastolic Volume MOD 2C 83.8 cm??? LV Systolic Volume MOD 2C 32.1 cm??? LV Ejection Fraction MOD 2C 61.8 % LV Cardiac Index MOD 2C 2574.9 cm???/min???m??? LV Diastolic Length 2C 8.1 cm LV Systolic Length 2C 6.7 cm LA Volume 29.0 cm??? 18 - 58 / 22 - 52 cm??? LA Volume Index 20.9 cm???/m??? 16 - 28 cm???/m??? DOPPLER AV Peak Velocity 127.0 cm/s AV Peak Gradient 6.5 mmHg AV Mean Velocity 83.6 cm/s AV Mean Gradient 3.2 mmHg AV Velocity Time Integral 25.5 cm LVOT Peak Velocity 101.1 cm/s LVOT Peak Gradient 4.1 mmHg LVOT Velocity Time Integral 19.8 cm LVOT Stroke Volume 47.6 cm??? LVOT Stroke Volume Index 34.7 ml/m??? LVOT Cardiac Index 2366.7 cm???/min???m??? AV Area Cont Eq vti 1.9 cm??? AV Area Cont Eq pk 1.9 cm??? MV Area PHT 4.2 cm??? Mitral E Point Velocity 85.7 cm/s Mitral A Point Velocity 41.4 cm/s Mitral E to A Ratio 2.1 MV Deceleration Time 180.0 ms TR Peak Velocity 224.1 cm/s TR Peak Gradient 20.1 mmHg Right Atrial Pressure 5.0 mmHg Pulmonary Artery Systolic Pressu 25.1 mmHg Right Ventricular Systolic Press 25.1 mmHg PV Peak Velocity 100.7 cm/s PV Peak Gradient 4.1 mmHg FINDINGS Left Ventricle Left ventricular ejection fraction is estimated at 55-60 %. Left ventricular cavity size normal. Left ventricular wall thickness normal. No obvious regional wall motion abnormalities. Right Ventricle Normal right ventricular size and function. Right ventricular systolic pressure within normal limits. Right Atrium Normal right atrial size. Left Atrium Normal left atrial size. Mitral Valve Structurally normal mitral valve. No evidence for mitral valve prolapse. No mitral stenosis. Trace mitral regurgitation. Aortic Valve Trileaflet aortic valve. No aortic valve stenosis or regurgitation. Tricuspid Valve Structurally normal tricuspid valve. No tricuspid stenosis. Mild tricuspid regurgitation. Pulmonic Valve Structurally normal pulmonic valve. No pulmonic stenosis. No pulmonic regurgitation. Pericardium No pericardial effusion. Thickened pericardium. Aorta Aortic annulus normal. CONCLUSIONS Normal LV size and systolic function. LVEF 55 to 60% No obvious regional wall motion abnormality Normal chamber size No obvious valvular dysfunction Normal RV size and systolic function Previewed by: Dr Miguel Angel Mueller (Electronically Signed) Final Date: 18 April 2024 09:44
--- NOTE | 2024-04-18 12:46 | P.PN ---
Subjective HISTORY OF PRESENT ILLNESS: This is a 24-year-old female with a past medical history significant for anxiety, depression, and PTSD. Patient does not follow with a director distribution. We have been asked to see the patient in consultation for chest pain. Patient examined at the bedside in the emergency room. Patient presented to the emergency room with a chief complaint of chest discomfort. Patient states she has been having chest pain since . She states it feels like a pressure type sensation. She states it is in the middle of her chest. She denies any radiation of the pain. Denies any shortness of breath. Denies any dizziness or lightheadedness. Denies any nausea or vomiting. She states the pain is not different if she is laying down or sitting. She states with deep inspiration she does have slightly more chest pressure. She states she has been taking Advil at home without relief. She denies any fever or chills. Denies a cough. Denies any recent infection or being around any sick contacts. She is a non- smoker. She denies any alcohol use. She denies any drug use including marijuana. DIAGNOSTICS: - EKG reveals sinus mechanism with no signs of acute ischemia - Chest xray negative for acute process - Laboratory data: WBC 7.8. Hemoglobin 15.7. Platelet count 410. D-dimer 0.17. Sodium 138. Potassium 5.4. BUN 8. Creatinine 0.57. Troponin negative x 3. - Current home cardiac medications include none - No previous cardiac catheterization, stress test, or echocardiogram available in EMR for review 04/18/2024 Patient examined this morning at the bedside. Patient states that she is still having chest discomfort this morning. ESR and CRP are negative. Echocardiogram completed revealing ejection fraction 55 to 60%, trace MR, mild TR. Vital signs are stable. PHYSICAL EXAM: VITAL SIGNS: Reviewed. GENERAL: Well-developed in no acute distress. HEENT: Head is normocephalic. Pupils are equal, round. Sclerae anicteric. Mucous membranes of the mouth are moist. Neck supple. No JVD or thyromegaly LUNGS: Respirations even and unlabored. Lungs essentially clear to auscultation bilaterally. HEART: Regular rate and rhythm. S1 and S2 heard. ABDOMEN: Soft. Nondistended. Nontender. EXTREMITIES: Normal range of motion. No clubbing or cyanosis. Peripheral pulses intact. No lower extremity edema NEUROLOGIC: Awake and alert. Oriented x 3. ASSESSMENT: Atypical chest pain, troponin negative x 3 Anxiety Depression History of PTSD PLAN: An acute coronary event has been ruled out 2D echo obtained and reviewed ESR and CRP within normal limits No further inpatient recommendations from a cardiac standpoint Patient may be discharged today from a cardiac standpoint and follow-up with her primary care physician Nurse practitioner note has been reviewed by physician. Signing provider agrees with the documented findings, assessment, and plan of care documented by COLLAR SEPARATOR as a scribe. Objective - Vital Signs Vital signs: Vital Signs Temp 97.8 F 04/18/24 07:00 Pulse 78 04/18/24 07:00 Resp 16 04/18/24 07:00 BP 105/69 04/18/24 07:00 Pulse Ox 98 04/18/24 07:00 FiO2 Intake & Output 04/17/24 04/18/24 04/18/24 18:59 06:59 18:59 Intake Total 760 118 Balance 760 118 Weight 46.72 kg Intake: Oral 760 118 Other: # Voids 2 - Labs CBC & Chem 7: 04/18/24 04:02 04/18/24 04:02 Labs: Abnormal Lab Results - Last 24 Hours (Table) 04/18/24 04/18/24 Range/Units 04:02 04:02 MPV 8.8 L (9.5-12.2) FL HDL Cholesterol 68.00 H (40.00-60.00) mg/dL
--- NOTE | 2024-04-18 13:21 | P.DS ---
Providers Date of admission: 04/17/24 00:35 Expected date of discharge: 04/18/24 Attending physician: Yesi Ledezma Consults: 04/17/24 00:34 Consult Physician Urgent Consulting Provider: Junito Zaldivar Consult Reason/Comments: chest pain Do you want consulting provider notified?: Yes Primary care physician: [facility] Course: Discharge diagnosis: Atypical chest pain, r/o ACS Hyperbilirubinemia Epigastric pain Anxiety/Depression Hospital Course: Patient is a 24 year old female with PMH of anxiety and anemia presented to the ED with chest pain She mentions her symptoms started 4-5 days ago. The pressure sensation on her chest started at rest and it comes and goes. She sometime gets sharp substernal pain that is 8/10 severity. Denies radiation of the pain. Denies any changes in her physical activity or exertion. Denies having any alleviating or precipitating factors. It is associated with shortness of breath and palpitations. She tried her anxiety meds as well as pain killers but that did not help with her symptoms. She reports having similar symptoms a few months ago. At the time the pain resolved on its own. She has been a frequenter to the ER in the past few years mostly for nausea and vomiting. Additionally, she states taking a Motrin every day and being on control currently. Denies fever, chills, abdominal pain, nausea, vomiting, diaphoresis, cough, hematuria, dysuria, hematochezia, melena. Vitals on admission T 98.2 F, FL 85 bpm, RR 16, BP 106/73, O2 sats 99% on room air. EKG independently interpreted as sinus rhythm, rate 63 bpm, QTc 415 ms. CXR shows no acute cardiopulmonary disease or process.Labs on admission show WBC 7.8, hemoglobin 15.7, INR 1, D-dimer less than 0.17, potassium 5.4, total bilirubin 2, AST 60, CRP 0.5, total protein 8.9, albumin 5.4. Troponin I 0.022, <0.012 x 2. In the ED patient was treated with Aspirin 325 mg. 04/18/24: Patient seen and examined at bedside today. No acute events overnight. Vitals are stable. ESR 4, pro-BNP <36. Abdominal ultrasound shows no evidence for acute process. Echocardiogram showed EF 55-60% and normal biventricular function. Patient seen at bedside today and is feeling good and excited about discharge. Patient will be discharged today. Patient is advised to follow-up with PCP in 1-2 days . Vital signs are reviewed and stable General: nontoxic, no distress, appears at stated age Derm: warm, dry, intact Head: atraumatic, normocephalic, symmetric Eyes: EOMI, anicteric sclera Mouth: no lip lesion, mucus membranes moist Cardiovascular: S1 S2 reg, no murmur Lungs: CTA bilateral, no rhonchi, no rales, no accessory muscle use Abdominal: soft, non-tender to palpation Extremities: No cyanosis, clubbing, or pedal edema. Neuro: Alert, Oriented, Gross neurological examination did not reveal any focal deficits. Psych: well appearing, appropriate affect A total of 30 minutes of time were spent preparing this complex discharge summary. Patient was discharged on 04/18/24 at 1200. Patient Condition at Discharge: Stable Plan - Discharge Summary New Discharge Prescriptions: Continue norgestimate-ethinyl estradioL [Nina 0.25-0.035 mg Tablet] 1 tab PO DAILY buPROPion XL [Wellbutrin XL] 300 mg PO DAILY Ferrous Sulfate [Iron (65 MG Elemental)] 325 mg PO DAILY Lurasidone [Latuda] 40 mg PO HS hydrOXYzine pamoate [Vistaril] 50 mg PO BID PRN PRN Reason: Anxiety Discharge Medication List Ferrous Sulfate [Iron (65 MG Elemental)] 325 mg PO DAILY 09/02/22 [History] Lurasidone [Latuda] 40 mg PO HS 09/02/22 [History] buPROPion XL [Wellbutrin XL] 300 mg PO DAILY 09/02/22 [History] norgestimate-ethinyl estradioL [Nina 0.25-0.035 mg Tablet] 1 tab PO DAILY 09/02/22 [History] hydrOXYzine pamoate [Vistaril] 50 mg PO BID PRN 04/17/24 [History] Follow up Appointment(s)/Referral(s): Meghan Sanon MD [Primary Care Provider] - 1-2 days Discharge Disposition: HOME SELF-CARE
== END 2024-04-18 12:15 | disposition home or self-care (01) ==
LOC: EC 20:25 → 6NMEDSUR 04-17 00:35
PROVIDERS: ADMIT Hospitalist; ATTEND Hospitalist
DX: R07.89 Other chest pain (principal); R10.13 Epigastric pain; R79.89 Other specified abnormal findings of blood chemistry; E80.6 Other disorders of bilirubin metabolism; D64.9 Anemia, unspecified; F41.9 Anxiety disorder, unspecified; F32.A Depression, unspecified; F43.10 Post-traumatic stress disorder, unspecified; Z79.899 Other long term (current) drug therapy
CPT/HCPCS: 99285; 36415; 93005; 93306; 85379; 83880; 80061; 80053; 80048; 85652; 83735; 84484 ×2; 85025; 85027; 85610; 85730; 86140; 71046; 76705; G0378 ×2